=== PATIENT | male | born 1985 | race Hispanic/Latino ===

== ENCOUNTER 2017-05-05 16:36 | Inpatient (IN) | payer MEDICAID ==
[~2017-05-05] VITALS: Ht 162.6 cm; Wt 81.5 kg
[~2017-05-05 16:36] MED LIST: ASPI-1197 PO; GLIP5TAB11 PO; METF500T6 PO; SULF1TAB42 PO
[2017-05-05] MEDS ORDERED: METOCLOPRAMIDE 10 MG/2 ML VIAL ONE (16:59)
[2017-05-05] MEDS ORDERED: SODIUM CHLORIDE 0.9% 1000ML 1,000 ML IV ONE (16:59)
[2017-05-05] MEDS ORDERED: ACETAMINOPHEN 325 MG TAB ONE (16:59)
[2017-05-05] MEDS ORDERED: ASPIRIN 325 MG TABLET ONE (16:59)
[2017-05-05 17:04] LABS: EOSINOPHILS % (AUTO) 1.4 % (0.0-8.0); LYMPHOCYTES % (AUTO) 22.5 % (21.0-51.0); MEAN CORPUSCULAR HEMOGLOBIN 26.8 pg (27.0-33.0); MEAN CORPUSCULAR VOLUME 78.7 fL (79-99); MONOCYTES % (AUTO) 7.4 % (3.0-13.0); NEUTROPHILS % (AUTO) 67.7 % (40.0-77.0); PLATELET COUNT (AUTO) 395 K/uL (130-400); RED BLOOD CELL COUNT(AUTO) 4.44 MIL/uL (4.50-6.20); RED CELL DISTRIBUTION WIDTH 12.8 % (11.0-15.5); WHITE BLOOD COUNT (AUTO) 11.1 K/uL (4.8-10.8)
[2017-05-05 17:11] LABS: CREATININE 2.9 mg/dL (0.5-1.5)
[2017-05-05 17:12] LABS: POTASSIUM 2.4 mmol/L (3.5-5.1)
[2017-05-05] MEDS ORDERED: POTASSIUM CHLORIDE 20 MEQ ERTAB PO ONE ×2 (17:39→17:47)
[2017-05-05] MEDS ORDERED: POTASSIUM CHLORIDE 20MEQ/100ML 100 ML IV ONE (17:39)
[2017-05-05 17:43] LABS: APPEARANCE,URINE Clear (CLEAR); BILIRUBIN,URINE Negative (NEGATIVE); COLOR,URINE Yellow (YELLOW); GLUCOSE, URINE (UA) >=1000 mg/dL (NEGATIVE); KETONES,URINE Negative (NEGATIVE); LEUKOCYTE ESTERASE ,URINE Negative (NEGATIVE); NITRATE,URINE Negative (NEGATIVE); OCCULT BLOOD,URINE Moderate (NEGATIVE); PH,URINE 6.5 (5.0-8.0); PROTEIN,URINE >=1000 (NEGATIVE); UROBILINOGEN,URINE 0.2 mg/dL (0.2-1.0)
[2017-05-05 17:47] LABS: RBC,URINE None Seen /HPF (0-1); WBC,URINE 0-1 /HPF (0-1)
[2017-05-05 17:48] LABS: BACTERIA,URINE Rare /HPF (None Seen); HYALINE CASTS, URINE 0-1 /LPF (0-1 /LPF); MUCUS,URINE Rare LPF (None Seen); SQUAMOUS EPITHELIAL CELL,UR Rare /LPF (0-2)
[2017-05-05] MEDS ORDERED: GUAIFENESIN-DM 200/20 MG 10 ML PO PRN (18:00)
[2017-05-05] MEDS ORDERED: ONDANSETRON HCL 4 MG/2 ML VIAL IV PRN (18:00)
[2017-05-05] MEDS ORDERED: LACTULOSE 20 GM/30 ML UDCUP PO PRN (18:00)
[2017-05-05] MEDS ORDERED: ACETAMINOPHEN 325 MG TAB PO PRN ×2 (18:00)
[2017-05-05 18:15] LABS: AMPHET/METH SCREEN,URINE NEGATIVE (NEGATIVE); BARBITURATE SCREEN, URINE NEGATIVE (NEGATIVE); BENZODIAZEPINES SCREEN,URINE NEGATIVE (NEGATIVE); CANNABINOID SCREEN,URINE NEGATIVE (NEGATIVE); COCAINE SCREEN,URINE POSITIVE (NEGATIVE); OPIATE SCREEN,URINE NEGATIVE (NEGATIVE); PHENCYCLIDINE SCREEN,URINE NEGATIVE (NEGATIVE)
[2017-05-05 18:37] LABS: POTASSIUM 2.2 mmol/L (3.5-5.1)
[2017-05-05 19:00] VITALS: BP 187/98
[2017-05-05] MEDS: FAMOTIDINE/PF 20 MG/2 ML VIAL IV SCH (20:23)
[2017-05-05] MEDS: SODIUM CHLORIDE 0.9% 1000ML 1,000 ML IV SCH (20:23)
[2017-05-05] MEDS: HYDRALAZINE HCL 20 MG/ML VIAL IV PRN (22:16)
[2017-05-05] MEDS: NITROGLYCERIN 1GM/1 INCH PACKET TD SCH (22:30)
[2017-05-05] MEDS ORDERED: NITROGLYCERIN 1GM/1 INCH PACKET TD ONE (22:49)
[2017-05-05 23:07] LABS: CREATINE KINASE MB 4.7 ng/mL (0.5-3.6); CREATINE KINASE, TOTAL 260 U/L (21-232); MYOGLOBIN 328 ng/mL (10-92); THYROID STIMULATING HORMONE 3.54 uIU/mL (0.36-3.74); TROPONIN I < 0.04 ng/mL (0.00-0.06)
[2017-05-05] MEDS ORDERED: METRONIDAZOLE 500MG/100ML BAG 100 ML ONE (23:11)
[2017-05-05 23:12] LABS: POTASSIUM 2.4 mmol/L (3.5-5.1)
[2017-05-05] MEDS: METRONIDAZOLE 250MG/50ML 50 ML IV SCH (23:19)
[2017-05-05 23:42] VITALS: BP 135/76
[2017-05-06] MEDS ORDERED: POTASSIUM CHLORIDE 20 MEQ ERTAB PO SCH (00:45)
[2017-05-06] MEDS ORDERED: POTASSIUM CHLORIDE 20 MEQ ERTAB PO ONE (00:47)
[2017-05-06 04:00] VITALS: BP 104/55
[2017-05-06 05:28] LABS: CREATININE 2.8 mg/dL (0.5-1.5)
[2017-05-06 05:30] LABS: POTASSIUM 2.7 mmol/L (3.5-5.1)
[2017-05-06] MEDS: SODIUM CHLORIDE 0.9% 1000ML 1,000 ML IV SCH (06:05)
[2017-05-06] MEDS: INSULIN HUMULIN R 100 UNIT/ML 3ML SQ SCH ×4 (06:06→21:15)
[2017-05-06] MEDS ORDERED: METRONIDAZOLE 500MG/100ML BAG 100 ML ONE (06:21)
[2017-05-06] MEDS: NITROGLYCERIN 1GM/1 INCH PACKET TD SCH ×3 (06:36→21:23)
[2017-05-06] MEDS ORDERED: INSULIN HUMULIN R 100 UNIT/ML 3ML SQ SCH (07:30)
[2017-05-06 08:00] VITALS: BP 170/87
[2017-05-06] MEDS ORDERED: INSU100V12 SQ (09:59)
[2017-05-06] MEDS ORDERED: METF10004 PO (09:59)
[2017-05-06] MEDS ORDERED: GLIP5TAB11 PO (09:59)
[2017-05-06] MEDS ORDERED: LISI10TA7 PO (09:59)
[2017-05-06] MEDS ORDERED: HYDR25TA PO (09:59)
[2017-05-06] MEDS: FAMOTIDINE/PF 20 MG/2 ML VIAL IV SCH ×2 (10:00→21:14)
[2017-05-06 11:19] VITALS: BP 164/102
[2017-05-06] MEDS: METRONIDAZOLE 250MG/50ML 50 ML IV SCH ×2 (14:32→21:23)
[2017-05-06 15:22] LABS: CREATININE 2.8 mg/dL (0.5-1.5)
[2017-05-06 16:00] VITALS: BP 179/89
[2017-05-06] MEDS: HYDRALAZINE HCL 20 MG/ML VIAL IV PRN (17:07)
[2017-05-06 18:00] VITALS: BP 190/93
[2017-05-06] MEDS ORDERED: METOPROLOL TARTRATE 1 MG/ML 5ML VIAL IV PRN (18:45)
[2017-05-06] MEDS ORDERED: METOPROLOL TARTRATE 1 MG/ML 5ML VIAL IV ONE (18:49)
[2017-05-06 19:27] VITALS: BP 145/88
[2017-05-07] VITALS (7 sets, daily range): BP systolic 117–196; BP diastolic 63–104
[2017-05-07] MEDS: METRONIDAZOLE 250MG/50ML 50 ML IV SCH ×2 (05:14→14:57)
[2017-05-07] MEDS: NITROGLYCERIN 1GM/1 INCH PACKET TD SCH (05:15)
[2017-05-07 05:33] LABS: CREATININE 2.6 mg/dL (0.5-1.5)
[2017-05-07 05:44] LABS: POTASSIUM 2.8 mmol/L (3.5-5.1)
[2017-05-07] MEDS: INSULIN HUMULIN R 100 UNIT/ML 3ML SQ SCH ×3 (06:20→16:18)
[2017-05-07] MEDS ORDERED: INSULIN GLARGINE 100 UNITS/ML 10 ML VIAL SQ SCH (08:00)
[2017-05-07] MEDS: FAMOTIDINE/PF 20 MG/2 ML VIAL IV SCH (08:39)
[2017-05-07] MEDS ORDERED: GLIPIZIDE 5 MG TABLET PO SCH (09:00)
[2017-05-07] MEDS ORDERED: LISINOPRIL 10 MG TABLET PO SCH (09:00)
[2017-05-07] MEDS ORDERED: SODIUM CHLORIDE 0.9% 1000ML 1,000 ML IV SCH (09:56)
[2017-05-07] MEDS ORDERED: POTASSIUM CHLORIDE 10% ELIXIR 20 MEQ/15 ML UDCUP PO PRN (10:00)
[2017-05-07] MEDS ORDERED: POTASSIUM CHLORIDE 20 MEQ ERTAB PO PRN (10:00)
[2017-05-07] MEDS ORDERED: MAGNESIUM 2GM PREMIX 50ML 50 ML IV SCH (10:00)
[2017-05-07] MEDS: LIDOCAINE HCL-MPF 1% 2ML VIAL IVP PRN ×2 (13:11→16:08)
[2017-05-07] MEDS: POTASSIUM CHLORIDE 20MEQ/100ML 100 ML IV PRN ×2 (13:11→16:08)
[2017-05-07] MEDS: HYDRALAZINE HCL 20 MG/ML VIAL IV PRN (16:18)
[2017-05-07 18:24] LABS: CREATININE 2.7 mg/dL (0.5-1.5); POTASSIUM 3.6 mmol/L (3.5-5.1)
[2017-09-07] MEDS ORDERED: AMLO5TAB4 PO (09:16)
[2017-09-07] MEDS ORDERED: CIPR250T6 PO (09:16)
== END 2017-05-07 20:30 | disposition home or self-care (01) | DRG 249 ==
LOC: EDH 16:36 → EDHIP 16:37 → OBSVTOIN 16:37 → 4CH 19:05
PROVIDERS: ADMIT Family Medicine; ATTEND Family Medicine
DX: K52.9 Noninfective gastroenteritis and colitis, unspecified (principal); E11.22 Type 2 diabetes mellitus with diabetic chronic kidney disease; N17.9 Acute kidney failure, unspecified; E11.42 Type 2 diabetes mellitus with diabetic polyneuropathy; E11.319 Type 2 diabetes mellitus with unspecified diabetic retinopathy without macular edema; N18.3 Chronic kidney disease, stage 3 (moderate); E87.6 Hypokalemia; E11.40 Type 2 diabetes mellitus with diabetic neuropathy, unspecified; I12.9 Hypertensive chronic kidney disease with stage 1 through stage 4 chronic kidney disease, or unspecified chronic kidney disease; F14.90 Cocaine use, unspecified, uncomplicated; H54.7 Unspecified visual loss; Z79.4 Long term (current) use of insulin; Z83.3 Family history of diabetes mellitus
CPT/HCPCS: 36415; 71045; 80048; 80305; 81001; 82550; 82553; 82948; 83036; 83690; 83735; 83874; 84132; 84443; 84484; 85025; 85378; 87046; 87205; 87324; 93005; J0360; J1815; J2765; J3475; J3480; J3490; J7030

== ENCOUNTER 2017-09-18 19:11 | Inpatient (IN) | payer SELFPAY ==
[~2017-09-18] VITALS: Ht 162.6 cm; Wt 88.7 kg
[~2017-09-18 19:11] MED LIST changes: +AMLO5TAB4 PO; -ASPI-1197 PO; +CIPR250T6 PO; -GLIP5TAB11 PO; -METF500T6 PO; -SULF1TAB42 PO
[2017-09-18 19:40] LABS: BASOPHILS % (AUTO) 1.2 % (0.0-5.0); HEMATOCRIT 22.8 % (42-54); LYMPHOCYTES % (AUTO) 10.6 % (21.0-51.0); MEAN CORPUSCULAR HEMOGLOBIN 26.2 pg (27.0-33.0); MEAN CORPUSCULAR HGB CONC 33.2 g/dL (32.0-36.0); MEAN CORPUSCULAR VOLUME 78.9 fL (79-99); MONOCYTES % (AUTO) 18.9 % (3.0-13.0); NEUTROPHILS % (AUTO) 67.3 % (40.0-77.0); PLATELET COUNT (AUTO) 282 K/uL (130-400); RED BLOOD CELL COUNT(AUTO) 2.89 MIL/uL (4.50-6.20); RED CELL DISTRIBUTION WIDTH 14.7 % (11.0-15.5)
[2017-09-18 19:52] LABS: CREATININE 5.3 mg/dL (0.5-1.5); POTASSIUM 3.2 mmol/L (3.5-5.1)
[2017-09-18 19:59] LABS: B-TYPE NATRIURETIC PEPTIDE 290 pg/mL (0-100)
[2017-09-18 20:06] LABS: ALBUMIN 1.9 g/dL (3.5-5.0); BILIRUBIN,DIRECT 0.1 mg/dL (0.0-0.3); BILIRUBIN,TOTAL 0.5 mg/dL (0.2-1.0); TOTAL PROTEIN, SERUM 6.7 g/dL (6.0-8.3)
[2017-09-18 20:58] LABS: APPEARANCE,URINE CLEAR (CLEAR); BILIRUBIN,URINE NEGATIVE (NEGATIVE); COLOR,URINE YELLOW (YELLOW); GLUCOSE, URINE (UA) 250 mg/dL (NEGATIVE); KETONES,URINE NEGATIVE (NEGATIVE); LEUKOCYTE ESTERASE ,URINE NEGATIVE (NEGATIVE); NITRATE,URINE NEGATIVE (NEGATIVE); OCCULT BLOOD,URINE LARGE (NEGATIVE); PROTEIN,URINE >=300 (NEGATIVE); UROBILINOGEN,URINE 0.2 mg/dL (0.2-1.0)
[2017-09-18 21:05] LABS: AMPHET/METH SCREEN,URINE NEGATIVE (NEGATIVE); BARBITURATE SCREEN, URINE NEGATIVE (NEGATIVE); BENZODIAZEPINES SCREEN,URINE NEGATIVE (NEGATIVE); CANNABINOID SCREEN,URINE NEGATIVE (NEGATIVE); COCAINE SCREEN,URINE NEGATIVE (NEGATIVE); OPIATE SCREEN,URINE NEGATIVE (NEGATIVE); PHENCYCLIDINE SCREEN,URINE NEGATIVE (NEGATIVE)
[2017-09-18 21:20] LABS: BACTERIA,URINE Few /HPF (None Seen); SQUAMOUS EPITHELIAL CELL,UR Few /HPF (0-2); WBC,URINE 0-1 /HPF (0-1)
[2017-09-18] MEDS ORDERED: FUROSEMIDE 10 MG/ML 4ML VIAL ONE (22:03)
[2017-09-18] MEDS ORDERED: ALBUMIN (HUMAN) 25% 100 ML IV ONE (22:35)
[2017-09-19] MEDS ORDERED: GLUCAGON 1MG KIT 1 MG ML IM PRN (01:15)
[2017-09-19] MEDS ORDERED: DEXTROSE 50%-WATER 50 ML DISP.SYRIN IV PRN (01:15)
[2017-09-19] MEDS ORDERED: ACETAMINOPHEN 325 MG TAB PO PRN (01:30)
[2017-09-19] MEDS ORDERED: ONDANSETRON HCL MDV 20ML 2 MG/ML VIAL IVP PRN (01:30)
[2017-09-19] MEDS: IPRATROPIUM/ALBUTEROL SULFATE 3 ML SOLUTION IH SCH ×6 (02:40→21:48)
[2017-09-19] MEDS: HEPARIN SODIUM 5000UNIT/ML 1ML VIAL SQ SCH ×3 (06:00→22:40)
[2017-09-19] MEDS ORDERED: IPRATROPIUM/ALBUTEROL SULFATE 3 ML SOLUTION IH ONE ×3 (06:58→13:58)
[2017-09-19] MEDS: INSULIN HUMULIN R 100 UNIT/ML 3ML SQ SCH ×4 (07:30→21:00)
[2017-09-19 08:29] LABS: BASOPHILS % (AUTO) 0.8 % (0.0-5.0); EOSINOPHILS % (AUTO) 0.7 % (0.0-8.0); HEMATOCRIT 22.5 % (42-54); LYMPHOCYTES % (AUTO) 8.4 % (21.0-51.0); MEAN CORPUSCULAR HEMOGLOBIN 26.1 pg (27.0-33.0); MEAN CORPUSCULAR HGB CONC 32.9 g/dL (32.0-36.0); MEAN CORPUSCULAR VOLUME 79.1 fL (79-99); MONOCYTES % (AUTO) 15.2 % (3.0-13.0); NEUTROPHILS % (AUTO) 74.9 % (40.0-77.0); PLATELET COUNT (AUTO) 271 K/uL (130-400); RED BLOOD CELL COUNT(AUTO) 2.84 MIL/uL (4.50-6.20); RED CELL DISTRIBUTION WIDTH 14.4 % (11.0-15.5); WHITE BLOOD COUNT (AUTO) 7.6 K/uL (4.8-10.8)
[2017-09-19 08:45] LABS: CREATININE 5.3 mg/dL (0.5-1.5); POTASSIUM 3.2 mmol/L (3.5-5.1)
[2017-09-19] MEDS ORDERED: FAMOTIDINE 20MG TAB 20 MG TAB ONE (08:59)
[2017-09-19] MEDS ORDERED: FUROSEMIDE 10 MG/ML 2ML VIAL ONE (08:59)
[2017-09-19] MEDS ORDERED: HEPARIN SODIUM 5000UNIT/ML 1ML VIAL ONE (08:59)
[2017-09-19] MEDS: FAMOTIDINE 20MG TAB 20 MG TAB PO SCH ×2 (09:00→22:36)
[2017-09-19] MEDS: FUROSEMIDE 10 MG/ML 2ML VIAL IVP SCH ×2 (09:00→22:38)
[2017-09-19 16:40] VITALS: BP 160/84
[2017-09-19 19:53] VITALS: BP 136/64
[2017-09-19 23:28] VITALS: BP 130/73
[2017-09-20] VITALS (9 sets, daily range): BP systolic 152–177; BP diastolic 51–102
[2017-09-20] MEDS: IPRATROPIUM/ALBUTEROL SULFATE 3 ML SOLUTION IH SCH ×6 (01:36→21:24)
[2017-09-20 05:47] LABS: HEMATOCRIT 21.7 % (42-54); MEAN CORPUSCULAR HEMOGLOBIN 26.4 pg (27.0-33.0); MEAN CORPUSCULAR HGB CONC 33.9 g/dL (32.0-36.0); PLATELET COUNT (AUTO) 249 K/uL (130-400); RED BLOOD CELL COUNT(AUTO) 2.78 MIL/uL (4.50-6.20); RED CELL DISTRIBUTION WIDTH 14.6 % (11.0-15.5); WHITE BLOOD COUNT (AUTO) 8.4 K/uL (4.8-10.8)
[2017-09-20 06:01] LABS: CREATININE 5.6 mg/dL (0.5-1.5); PHOSPHORUS 7.9 mg/dL (2.5-4.9); POTASSIUM 3.4 mmol/L (3.5-5.1)
[2017-09-20 06:05] LABS: INR 0.98 (0.85-1.15); PARTIAL THROMBOPLASTIN TIME 34.1 SEC (26.3-35.5); PROTHROMBIN TIME 10.3 SEC (9.6-11.6)
[2017-09-20 06:06] LABS: EOSINOPHILS % (MANUAL) 1 % (1-6); LYMPHOCYTES % (MANUAL) 7 % (22-44); MAN.DIFF COMMENT-IMPRESSION MANUAL DIFFERENTIAL; MONOCYTES % (MANUAL) 11 % (2-9); PLATELET MORPHOLOGY COMMENT ADEQUATE; SEGMENTED NEUTROPHILS % 81 % (40-70)
[2017-09-20] MEDS: HEPARIN SODIUM 5000UNIT/ML 1ML VIAL SQ SCH ×2 (06:14→22:00)
[2017-09-20] MEDS: INSULIN HUMULIN R 100 UNIT/ML 3ML SQ SCH ×3 (06:14→21:00)
[2017-09-20] MEDS ORDERED: LISINOPRIL 20 MG TABLET PO SCH (09:00)
[2017-09-20] MEDS ORDERED: LIDOCAINE HCL 2% 20ML ONE (11:39)
[2017-09-20] MEDS ORDERED: HEPARIN SODIUM 1000UNIT/ML 10ML VIAL ONE (11:41)
[2017-09-20 17:57] LABS: HEMATOCRIT 21.5 % (42-54)
[2017-09-20] MEDS ORDERED: ALBUMIN (HUMAN) 25% 100 ML IV PRN (18:15)
[2017-09-20] MEDS ORDERED: SODIUM CHLORIDE 0.9% 1000ML 1,000 ML IV PRN (18:15)
[2017-09-20] MEDS ORDERED: 0.9% SODIUM CHLORIDE 250 ML IV BAG IV PRN (18:15)
[2017-09-20] MEDS ORDERED: HEPARIN SODIUM 5000UNIT/ML 1ML VIAL IJ PRN (18:15)
[2017-09-20 18:27] LABS: ALBUMIN 2.1 g/dL (3.5-5.0)
[2017-09-20 18:32] LABS: % IRON SATURATION 5.1 % (30-44)
[2017-09-20 18:38] LABS: HEMOGLOBIN A1C 9.7 % (4.0-6.0)
[2017-09-20 19:35] LABS: CREATINE KINASE MB 9.9 ng/mL (0.5-3.6)
[2017-09-20] MEDS ORDERED: EPOETIN ALFA 20,000 UNIT/ML VIAL SQ ONE (21:00)
[2017-09-20] MEDS: FAMOTIDINE 20MG TAB 20 MG TAB PO SCH (21:53)
[2017-09-21 00:34] VITALS: BP 151/81
[2017-09-21] MEDS: IPRATROPIUM/ALBUTEROL SULFATE 3 ML SOLUTION IH SCH ×5 (01:34→23:24)
[2017-09-21 04:39] VITALS: BP 149/92
[2017-09-21] MEDS: HEPARIN SODIUM 5000UNIT/ML 1ML VIAL SQ SCH ×3 (06:00→22:35)
[2017-09-21] MEDS: INSULIN HUMULIN R 100 UNIT/ML 3ML SQ SCH ×4 (06:38→21:00)
[2017-09-21 08:00] VITALS: BP 151/82
[2017-09-21] MEDS ORDERED: COMPOUND IV MISC 1 EACH IVSOLN MISC PRN (09:15)
[2017-09-21] MEDS: FAMOTIDINE 20MG TAB 20 MG TAB PO SCH ×2 (09:45→21:14)
[2017-09-21] MEDS: IRON SUCROSE COMPLEX 100 MG in SODIUM CHLORIDE 0.9% 50 ML IV SCH (09:45)
[2017-09-21 11:00] VITALS: BP 144/71
[2017-09-21 16:00] VITALS: BP 155/99
[2017-09-21 20:57] VITALS: BP 167/88
[2017-09-22] VITALS (24 sets, daily range): BP systolic 130–165; BP diastolic 72–101
[2017-09-22 05:31] LABS: CREATININE 4.3 mg/dL (0.5-1.5); POTASSIUM 3.5 mmol/L (3.5-5.1)
[2017-09-22 05:40] LABS: RED CELL DISTRIBUTION WIDTH 14.8 % (11.0-15.5)
[2017-09-22] MEDS: HEPARIN SODIUM 5000UNIT/ML 1ML VIAL SQ SCH ×3 (05:42→20:40)
[2017-09-22 05:47] LABS: MEAN CORPUSCULAR HEMOGLOBIN 26.6 pg (27.0-33.0); MEAN CORPUSCULAR HGB CONC 34.2 g/dL (32.0-36.0); MEAN CORPUSCULAR VOLUME 77.5 fL (79-99); NUCLEATED RED BLOOD CELLS 0.1 % (0.0-0.19); PLATELET COUNT (AUTO) 242 K/uL (130-400); RED BLOOD CELL COUNT(AUTO) 2.52 MIL/uL (4.50-6.20); WHITE BLOOD COUNT (AUTO) 7.6 K/uL (4.8-10.8)
[2017-09-22 05:53] LABS: HEMATOCRIT 19.6 % (42-54)
[2017-09-22] MEDS: IPRATROPIUM/ALBUTEROL SULFATE 3 ML SOLUTION IH SCH ×3 (06:34→18:54)
[2017-09-22] MEDS: INSULIN HUMULIN R 100 UNIT/ML 3ML SQ SCH ×4 (07:30→21:00)
[2017-09-22 08:23] LABS: HEPATITIS Bs ANTIGEN SCREEN P Negative (Negative)
[2017-09-22] MEDS: LISINOPRIL 40 MG TABLET PO SCH (08:35)
[2017-09-22] MEDS: FAMOTIDINE 20MG TAB 20 MG TAB PO SCH ×2 (08:35→20:32)
[2017-09-22] MEDS ORDERED: IRON SUCROSE COMPLEX 100 MG in SODIUM CHLORIDE 0.9% 50 ML IV SCH (09:00)
[2017-09-22] MEDS: METOPROLOL TARTRATE 50 MG TAB PO SCH ×2 (09:57→20:32)
[2017-09-22] MEDS ORDERED: PAPAVERINE HCL 30 MG/ML 2ML VIAL ONE (10:28)
[2017-09-22] MEDS ORDERED: OCTYL 2-CYANOACRYLATE 1 EACH TP ONE (10:29)
[2017-09-22] MEDS ORDERED: NEOMY SULF/POLYMYXIN B SULFATE 1 ML AMPUL IR ONE (10:30)
[2017-09-22] MEDS ORDERED: LIDOCAINE HCL-MPF 0.5% 50ML VIAL IJ ONE (10:31)
[2017-09-22] MEDS ORDERED: FENTANYL CITRATE PF 50 MCG/1 ML 2ML VIAL ONE (11:19)
[2017-09-22] MEDS ORDERED: MIDAZOLAM HCL 1 MG/ML 2ML VIAL ONE (11:20)
[2017-09-22] MEDS: IRON SUCROSE COMPLEX 100 MG in SODIUM CHLORIDE 0.9% 50 ML IV SCH (16:25)
[2017-09-22] MEDS ORDERED: LOPERAMIDE HCL 2 MG CAP PO PRN (20:15)
[2017-09-23] MEDS ORDERED: TRAMADOL HCL 50 MG TABLET PO PRN (00:15)
[2017-09-23] MEDS: IPRATROPIUM/ALBUTEROL SULFATE 3 ML SOLUTION IH SCH ×3 (00:38→11:04)
[2017-09-23 03:54] VITALS: BP 168/92
[2017-09-23 05:23] LABS: MEAN CORPUSCULAR HEMOGLOBIN 26.8 pg (27.0-33.0); MEAN CORPUSCULAR HGB CONC 34.1 g/dL (32.0-36.0); MEAN CORPUSCULAR VOLUME 78.6 fL (79-99); PLATELET COUNT (AUTO) 253 K/uL (130-400); RED BLOOD CELL COUNT(AUTO) 2.93 MIL/uL (4.50-6.20); RED CELL DISTRIBUTION WIDTH 15.4 % (11.0-15.5)
[2017-09-23 05:32] LABS: ALBUMIN 2.1 g/dL (3.5-5.0); BILIRUBIN,TOTAL 0.4 mg/dL (0.2-1.0); CREATININE 3.4 mg/dL (0.5-1.5); POTASSIUM 3.3 mmol/L (3.5-5.1); TOTAL PROTEIN, SERUM 7.2 g/dL (6.0-8.3)
[2017-09-23] MEDS: HEPARIN SODIUM 5000UNIT/ML 1ML VIAL SQ SCH (07:03)
[2017-09-23] MEDS: INSULIN HUMULIN R 100 UNIT/ML 3ML SQ SCH ×2 (07:04→11:28)
[2017-09-23 08:01] VITALS: BP 145/68
[2017-09-23] MEDS: METOPROLOL TARTRATE 50 MG TAB PO SCH (08:54)
[2017-09-23] MEDS: LISINOPRIL 40 MG TABLET PO SCH (08:54)
[2017-09-23] MEDS: FAMOTIDINE 20MG TAB 20 MG TAB PO SCH (08:54)
[2017-09-23] MEDS: IRON SUCROSE COMPLEX 100 MG in SODIUM CHLORIDE 0.9% 50 ML IV SCH (08:54)
[2017-09-23 11:43] VITALS: BP 144/70
[2017-09-23] MEDS ORDERED: FAMO20TA8 PO (12:03)
[2017-09-23] MEDS ORDERED: METO50 PO (12:03)
[2017-09-23] MEDS ORDERED: LISI40TA4 PO (12:03)
== END 2017-09-23 15:25 | disposition home or self-care (01) | DRG 673 ==
LOC: EDH 19:11 → OBSVTOIN 19:12 → EDHIP 19:12 → 3DH 09-19 14:42
PROVIDERS: ADMIT Internal Medicine Nephrology; ATTEND Internal Medicine Nephrology
PROC: 0JH63XZ Insertion of Tunneled Vascular Access Device into Chest Subcutaneous Tissue and Fascia, Percutaneous Approach (ICD-10-PCS; principal; 2017-09-20)
PROC: 02H633Z Insertion of Infusion Device into Right Atrium, Percutaneous Approach (ICD-10-PCS; 2017-09-20)
PROC: B2141ZZ Fluoroscopy of Right Heart using Low Osmolar Contrast (ICD-10-PCS; 2017-09-20)
PROC: B244ZZZ Ultrasonography of Right Heart (ICD-10-PCS; 2017-09-20)
PROC: 5A1D70Z Performance of Urinary Filtration, Intermittent, Less than 6 Hours Per Day (ICD-10-PCS; 2017-09-20)
PROC: 5A1D70Z Performance of Urinary Filtration, Intermittent, Less than 6 Hours Per Day (ICD-10-PCS; 2017-09-21)
PROC: 03180ZD Bypass Left Brachial Artery to Upper Arm Vein, Open Approach (ICD-10-PCS; 2017-09-22)
PROC: 5A1D70Z Performance of Urinary Filtration, Intermittent, Less than 6 Hours Per Day (ICD-10-PCS; 2017-09-23)
DX: I12.0 Hypertensive chronic kidney disease with stage 5 chronic kidney disease or end stage renal disease (principal); N18.6 End stage renal disease; N17.9 Acute kidney failure, unspecified; E11.22 Type 2 diabetes mellitus with diabetic chronic kidney disease; E87.6 Hypokalemia; E11.319 Type 2 diabetes mellitus with unspecified diabetic retinopathy without macular edema; F14.10 Cocaine abuse, uncomplicated; H54.8 Legal blindness, as defined in USA; E11.649 Type 2 diabetes mellitus with hypoglycemia without coma; E87.70 Fluid overload, unspecified; R79.1 Abnormal coagulation profile; E78.5 Hyperlipidemia, unspecified; Z99.2 Dependence on renal dialysis; Z83.3 Family history of diabetes mellitus
CPT/HCPCS: 36415; 36430; 36558; 71045; 77001; 78580; 80048; 80053; 80061; 80076; 80305; 81001; 82040; 82550; 82553; 82728; 82948; 83036; 83540; 83550; 83880; 84100; 84484; 84520; 85014; 85018; 85025; 85027; 85378; 85610; 85730; 86701; 86704; 86706; 86850; 86900; 86901; 86922; 87340; 87390; 87520; 90935; 93005; 93970; 93971; 94640; 94664; A9540; C1750; J0885; J1644; J1756; J1815; J1940; J2250; J2440; J3010; J3490; J7030; P9016; P9046

== ENCOUNTER 2017-12-27 10:01 | Day surgery (SDC) | payer MEDICARE ==
[~2017-12-27 10:01] MED LIST changes: -AMLO5TAB4 PO; -CIPR250T6 PO; +FAMO20TA8 PO; +LISI40TA4 PO; +METO50 PO
[2017-12-27 10:32] LABS: EOSINOPHILS % (AUTO) 2.1 % (0.0-8.0); HEMATOCRIT 40.9 % (42-54); LYMPHOCYTES % (AUTO) 16.3 % (21.0-51.0); MEAN CORPUSCULAR HEMOGLOBIN 27.2 pg (27.0-33.0); MEAN CORPUSCULAR VOLUME 82.3 fL (79-99); MONOCYTES % (AUTO) 9.2 % (3.0-13.0); NEUTROPHILS % (AUTO) 71.4 % (40.0-77.0); PLATELET COUNT (AUTO) 367 K/uL (130-400); RED BLOOD CELL COUNT(AUTO) 4.97 MIL/uL (4.50-6.20); RED CELL DISTRIBUTION WIDTH 16.4 % (11.0-15.5); WHITE BLOOD COUNT (AUTO) 11.9 K/uL (4.8-10.8)
[2017-12-27] MEDS ORDERED: SODIUM CHLORIDE 0.9% 1000ML 1,000 ML IV ONE (10:33)
[2017-12-27 10:36] LABS: CREATININE 5.3 mg/dL (0.5-1.5); POTASSIUM 4.2 mmol/L (3.5-5.1)
[2017-12-27] MEDS ORDERED: GLIP10TA9 PO (10:42)
[2017-12-27 10:47] LABS: INR 0.99 (0.85-1.15); PARTIAL THROMBOPLASTIN TIME 33.4 SEC (26.3-35.5); PROTHROMBIN TIME 10.4 SEC (9.6-11.6)
[2017-12-27] MEDS ORDERED: SODIUM BICARB 50MEQ 50ML VIAL ONE (11:54)
[2017-12-27] MEDS ORDERED: LIDOCAINE HCL MPF 1% 5ML VIAL ONE (11:54)
[2017-12-27 12:10] VITALS: BP 191/102
[2017-12-27 12:20] VITALS: BP 194/102
[2017-12-27 12:40] VITALS: BP 185/105
[2017-12-27] MEDS ORDERED: CLONIDINE HCL 0.2 MG TABLET PO SCH (13:00)
[2017-12-27 13:25] VITALS: BP 157/75
== END 2017-12-27 14:00 | disposition home or self-care (01) ==
LOC: CLH 10:01 → DAH 10:01 → CLH 14:00
PROVIDERS: ATTEND Internal Medicine Nephrology
DX: Z49.01 Encounter for fitting and adjustment of extracorporeal dialysis catheter (principal); I12.0 Hypertensive chronic kidney disease with stage 5 chronic kidney disease or end stage renal disease; E11.22 Type 2 diabetes mellitus with diabetic chronic kidney disease; N18.5 Chronic kidney disease, stage 5; E78.5 Hyperlipidemia, unspecified; F14.10 Cocaine abuse, uncomplicated; Z79.84 Long term (current) use of oral hypoglycemic drugs; Z91.018 Allergy to other foods; Z82.49 Family history of ischemic heart disease and other diseases of the circulatory system; Z83.3 Family history of diabetes mellitus
CPT/HCPCS: 36415; 36589; 71045; 80048; 82948; 85025; 85610; 85730; A4606; J3490 ×2; J7030; J1644

== ENCOUNTER 2018-04-30 21:52 | Emergency (ER) | payer MEDICARE ==
[~2018-04-30 21:52] MED LIST changes: -FAMO20TA8 PO; +GLIP10TA9 PO; -METO50 PO
[2018-04-30 22:30] LABS: BASOPHILS % (AUTO) 1.3 % (0.0-5.0); EOSINOPHILS % (AUTO) 1.9 % (0.0-8.0); HEMATOCRIT 37.4 % (42-54); LYMPHOCYTES % (AUTO) 13.2 % (21.0-51.0); MEAN CORPUSCULAR HEMOGLOBIN 28.9 pg (27.0-33.0); MEAN CORPUSCULAR HGB CONC 33.2 g/dL (32.0-36.0); MEAN CORPUSCULAR VOLUME 86.9 fL (79-99); MONOCYTES % (AUTO) 10.4 % (3.0-13.0); NEUTROPHILS % (AUTO) 73.2 % (40.0-77.0); PLATELET COUNT (AUTO) 262 K/uL (130-400); RED CELL DISTRIBUTION WIDTH 16.5 % (11.0-15.5); WHITE BLOOD COUNT (AUTO) 7.6 K/uL (4.8-10.8)
[2018-04-30 22:40] LABS: CREATININE 5.2 mg/dL (0.5-1.5); POTASSIUM 3.8 mmol/L (3.5-5.1)
[2018-04-30 22:41] LABS: INR 1.02 (0.85-1.15); PARTIAL THROMBOPLASTIN TIME 33.7 SEC (26.3-35.5); PROTHROMBIN TIME 10.7 SEC (9.6-11.6)
[2018-04-30 22:44] LABS: BILIRUBIN,TOTAL 0.9 mg/dL (0.2-1.0); TOTAL PROTEIN, SERUM 8.2 g/dL (6.0-8.3)
[2018-04-30] MEDS ORDERED: SODIUM CHLORIDE 0.9% 100 ML IV ONE (23:14)
[2018-04-30] MEDS ORDERED: ERYTHROMYCIN BASE 0.5% OPHTH OINT 1 GM TUBE ONE (23:26)
[2018-04-30] MEDS ORDERED: LISINOPRIL 5 MG TABLET ONE (23:29)
[2018-04-30] MEDS ORDERED: VANCOMYCIN 1GM+NS 250ML 250 ML IV ONE (23:30)
[2018-04-30] MEDS ORDERED: TETRACAINE HCL 0.5% 4 ML OPHTH SOLN ONE (23:34)
[2018-04-30] MEDS ORDERED: FLUORESCEIN SODIUM 1 STRIP STRIP ONE (23:35)
[2018-05-01] MEDS ORDERED: ACETAMINOPHEN EXTRA STRENGTH 500 MG TABLET ONE (04:23)
== END 2018-05-01 04:32 | disposition short-term general hospital (02) ==
LOC: EDH 21:52
DX: H44.811 Hemophthalmos, right eye (principal); H49.01 Third [oculomotor] nerve palsy, right eye; I12.0 Hypertensive chronic kidney disease with stage 5 chronic kidney disease or end stage renal disease; E11.22 Type 2 diabetes mellitus with diabetic chronic kidney disease; N18.6 End stage renal disease; Z99.2 Dependence on renal dialysis
CPT/HCPCS: 36415; 70450; 70480; 80053; 85025; 85610; 85730; 96365; 96366; 96375; 99285; J3370

== ENCOUNTER 2018-07-07 18:56 | Emergency (ER) | payer MEDICARE ==
[2018-07-07] MEDS ORDERED: SULFAMETHOX-TMP DS 800/160 TAB ONE (19:47)
[2018-07-07] MEDS ORDERED: IBUPROFEN 600 MG TABLET ONE (19:48)
== END 2018-07-07 20:23 | disposition home or self-care (01) ==
LOC: EDH 18:56
DX: L02.414 Cutaneous abscess of left upper limb (principal); E11.22 Type 2 diabetes mellitus with diabetic chronic kidney disease; I12.0 Hypertensive chronic kidney disease with stage 5 chronic kidney disease or end stage renal disease; N18.6 End stage renal disease; H54.7 Unspecified visual loss; Z99.2 Dependence on renal dialysis; Z79.4 Long term (current) use of insulin; Z87.891 Personal history of nicotine dependence

== ENCOUNTER 2018-09-18 13:04 | Inpatient (IN) | payer MEDICARE | END 2018-09-22 14:55 | disposition home or self-care (01) | LOC: EDH 13:04 → EDHIP 17:16 → 3CH 18:05 | DX: L03.211 Cellulitis of face (principal); N18.6 End stage renal disease; I12.0 Hypertensive chronic kidney disease with stage 5 chronic kidney disease or end stage renal disease; E11.21 Type 2 diabetes mellitus with diabetic nephropathy; E11.22 Type 2 diabetes mellitus with diabetic chronic kidney disease; D89.9 Disorder involving the immune mechanism, unspecified; D64.9 Anemia, unspecified; Z99.2 Dependence on renal dialysis; Z91.15 Patient's noncompliance with renal dialysis ==

== ENCOUNTER 2018-12-12 14:11 | Emergency (ER) | payer MEDICARE ==
[~2018-12-12 14:11] MED LIST changes: +AMLO5TAB4 PO; +AMOX-426 PO; +SEVE800T27 PO
== END 2018-12-12 15:15 | disposition home or self-care (01) ==
LOC: EDH 14:11
DX: L03.011 Cellulitis of right finger (principal); I12.0 Hypertensive chronic kidney disease with stage 5 chronic kidney disease or end stage renal disease; E11.22 Type 2 diabetes mellitus with diabetic chronic kidney disease; N18.6 End stage renal disease; Z99.2 Dependence on renal dialysis
CPT/HCPCS: 73130

== ENCOUNTER 2019-11-07 13:55 | Emergency (ER) | payer MEDICARE ==
[2019-11-07 14:38] LABS: BASOPHILS % (AUTO) 0.5 % (0.0-5.0); EOSINOPHILS % (AUTO) 4.3 % (0.0-8.0); HEMATOCRIT 32.5 % (42-54); LYMPHOCYTES % (AUTO) 11.1 % (21.0-51.0); MEAN CORPUSCULAR HEMOGLOBIN 31.2 pg (27.0-33.0); MEAN CORPUSCULAR HGB CONC 33.5 g/dL (32.0-36.0); MEAN CORPUSCULAR VOLUME 93.1 fL (79-99); MONOCYTES % (AUTO) 11.5 % (3.0-13.0); NEUTROPHILS % (AUTO) 72.4 % (40.0-77.0); PLATELET COUNT (AUTO) 148 K/uL (130-400); RED BLOOD CELL COUNT(AUTO) 3.49 MIL/uL (4.50-6.20); RED CELL DISTRIBUTION WIDTH 13.9 % (11.0-15.5); WHITE BLOOD COUNT (AUTO) 6.6 K/uL (4.8-10.8)
[2019-11-07 14:51] LABS: BILIRUBIN,TOTAL 1.4 mg/dL (0.2-1.0); POTASSIUM 4.8 mmol/L (3.5-5.1); TOTAL PROTEIN, SERUM 8.6 g/dL (6.0-8.3)
[2019-11-07 14:56] LABS: CREATININE 12.1 mg/dL (0.5-1.5)
== END 2019-11-07 15:55 | disposition home or self-care (01) ==
LOC: EDH 13:55
DX: H10.31 Unspecified acute conjunctivitis, right eye (principal); I12.0 Hypertensive chronic kidney disease with stage 5 chronic kidney disease or end stage renal disease; E11.22 Type 2 diabetes mellitus with diabetic chronic kidney disease; N18.6 End stage renal disease
CPT/HCPCS: 36415; 70480; 80053; 85025

== ENCOUNTER 2020-02-23 14:42 | Emergency (ER) | payer MEDICARE ==
[2020-02-23] MEDS ORDERED: VANCOMYCIN 1GM+NS 250ML 250 ML IV ONE (15:20)
[2020-02-23] MEDS ORDERED: DiphenhydrAMINE HCL 50 MG/ML VIAL ONE (15:20)
[2020-02-23] MEDS ORDERED: ZOSYN 3.375GM+NS 50ML 50 ML IV ONE (15:20)
[2020-02-23 15:41] LABS: BASOPHILS % (AUTO) 0.5 % (0.0-5.0); EOSINOPHILS % (AUTO) 1.8 % (0.0-8.0); HEMATOCRIT 31.4 % (42-54); LYMPHOCYTES % (AUTO) 8.9 % (21.0-51.0); MEAN CORPUSCULAR HGB CONC 33.8 g/dL (32.0-36.0); MONOCYTES % (AUTO) 11.8 % (3.0-13.0); NEUTROPHILS % (AUTO) 76.6 % (40.0-77.0); PLATELET COUNT (AUTO) 255 K/uL (130-400); RED BLOOD CELL COUNT(AUTO) 3.53 MIL/uL (4.50-6.20); RED CELL DISTRIBUTION WIDTH 13.5 % (11.0-15.5); WHITE BLOOD COUNT (AUTO) 11.8 K/uL (4.8-10.8)
[2020-02-23 15:56] LABS: ALBUMIN 3.6 g/dL (3.5-5.0); BILIRUBIN,TOTAL 1.1 mg/dL (0.2-1.0); CRP QUANTITATIVE 86.2 mg/L (0.00-9.0); POTASSIUM 4.3 mmol/L (3.5-5.1); TOTAL PROTEIN, SERUM 9.5 g/dL (6.0-8.3)
[2020-02-23 15:59] LABS: CREATININE 10.4 mg/dL (0.5-1.5)
[2020-02-23 17:27] LABS: ERYTHROCYTE SEDIMENTATION RATE 100 MM/HR (0-15)
== END 2020-02-23 19:56 | disposition home or self-care (01) ==
LOC: EDH 14:42
DX: L03.211 Cellulitis of face (principal); I12.0 Hypertensive chronic kidney disease with stage 5 chronic kidney disease or end stage renal disease; E11.22 Type 2 diabetes mellitus with diabetic chronic kidney disease; N18.6 End stage renal disease; Z99.2 Dependence on renal dialysis; Z79.899 Other long term (current) drug therapy
CPT/HCPCS: 36415; 80053; 83605; 85025; 85651; 86140; 87040 ×2; 96365; 96366; 96368; 96375; 99284; J1200; J2543; J3370

== ENCOUNTER 2020-08-26 12:55 | Emergency (ER) | payer MEDICARE, OTHER ==
[~2020-08-26 12:55] MED LIST changes: -LISI40TA4 PO; +LISI40TA9 PO
== END 2020-08-26 15:11 | disposition home or self-care (01) ==
LOC: EDH 12:55
DX: S40.011A Contusion of right shoulder, initial encounter (principal); V49.59XA Passenger injured in collision with other motor vehicles in traffic accident, initial encounter; Y93.89 Activity, other specified; Y92.89 Other specified places as the place of occurrence of the external cause; Y99.8 Other external cause status

== ENCOUNTER 2022-08-31 15:06 | Emergency (ER) | payer OTHER ==
[~2022-08-31] VITALS: Ht 162.6 cm; Wt 89.2 kg
[2022-08-31 15:53] LABS: BASOPHILS % (AUTO) 1.4 % (0.0-5.0); EOSINOPHILS % (AUTO) 5.5 % (0.0-8.0); HEMATOCRIT 33.5 % (42-54); LYMPHOCYTES % (AUTO) 11.3 % (21.0-51.0); MEAN CORPUSCULAR HEMOGLOBIN 29.9 pg (27.0-33.0); MEAN CORPUSCULAR HGB CONC 33.4 g/dL (32.0-36.0); MEAN CORPUSCULAR VOLUME 89.6 fL (79-99); MONOCYTES % (AUTO) 20.7 % (3.0-13.0); NEUTROPHILS % (AUTO) 60.8 % (40.0-77.0); PLATELET COUNT (AUTO) 103 K/uL (130-400); RED BLOOD CELL COUNT(AUTO) 3.74 MIL/uL (4.50-6.20); RED CELL DISTRIBUTION WIDTH 15.9 % (11.0-15.5); WHITE BLOOD COUNT (AUTO) 3.6 K/uL (4.8-10.8)
[2022-08-31 16:06] LABS: CREATININE 4.2 mg/dL (0.5-1.5); POTASSIUM 3.6 mmol/L (3.5-5.1)
[2022-08-31 16:11] LABS: ALBUMIN 3.8 g/dL (3.5-5.0); TOTAL PROTEIN, SERUM 8.1 g/dL (6.0-8.3)
[2022-08-31] MEDS ORDERED: LACT10SO9 PO (19:10)
[2022-08-31 19:26] VITALS: BP 152/70
== END 2022-08-31 19:34 | disposition home or self-care (01) ==
LOC: EDH 15:06
DX: K59.00 Constipation, unspecified (principal); I12.0 Hypertensive chronic kidney disease with stage 5 chronic kidney disease or end stage renal disease; N18.6 End stage renal disease; Z99.2 Dependence on renal dialysis; Z79.84 Long term (current) use of oral hypoglycemic drugs; Z79.899 Other long term (current) drug therapy
CPT/HCPCS: 36415; 74176; 80053; 85025

== ENCOUNTER → 2023-01-17 | Outpatient (CLI) | payer OTHER ==
[~2023-01-17] MED LIST changes: +HYDR100T27 PO; +LACT10SO9 PO; +LOSA1TAB54 PO
[2023-01-17 08:47] LABS: BASOPHILS # (AUTO) 0.09 K/uL (0.00-0.20); BASOPHILS % (AUTO) 1.2 % (0.0-5.0); EOSINOPHILS # (AUTO) 0.94 K/uL (0.00-0.70); EOSINOPHILS % (AUTO) 12.2 % (0.0-8.0); HEMATOCRIT 32.5 % (42-54); IMMATURE GRANULOCYTE ABSOLUTE 0.05 K/uL (0-1); LYMPHOCYTES # (AUTO) 0.5 K/uL (1.0-4.8); LYMPHOCYTES % (AUTO) 5.9 % (21.0-51.0); MEAN CORPUSCULAR HEMOGLOBIN 30.6 pg (27.0-33.0); MEAN CORPUSCULAR HGB CONC 32.9 g/dL (32.0-36.0); MEAN CORPUSCULAR VOLUME 92.9 fL (79-99); MONOCYTES % (AUTO) 12.5 % (3.0-13.0); NEUTROPHILS # (AUTO) 5.2 K/uL (1.8-7.7); NEUTROPHILS % (AUTO) 67.5 % (40.0-77.0); PLATELET COUNT (AUTO) 131 K/uL (130-400); RED CELL DISTRIBUTION WIDTH 16.7 % (11.0-15.5); WHITE BLOOD COUNT (AUTO) 7.7 K/uL (4.8-10.8)
[2023-01-17 08:54] LABS: INR 1.04 (0.85-1.15)
[2023-01-17 08:55] LABS: PARTIAL THROMBOPLASTIN TIME 35.3 SEC (26.3-35.5)
[2023-01-17 08:57] LABS: ALBUMIN 3.6 g/dL (3.5-5.0); BILIRUBIN,TOTAL 1.5 mg/dL (0.2-1.0); CREATININE 5.6 mg/dL (0.5-1.5); POTASSIUM 4.3 mmol/L (3.5-5.1); TOTAL PROTEIN, SERUM 8.3 g/dL (6.0-8.3)
[2023-01-19] VITALS (7 sets, daily range): BP systolic 99–126; BP diastolic 47–89; PULSE 69–73; RESP 14–16
== END | disposition home or self-care (01) ==
LOC: RAH 07:19
PROVIDERS: ATTEND Internal Medicine Gastroenterology
DX: Z01.818 Encounter for other preprocedural examination (principal); R18.8 Other ascites; I12.0 Hypertensive chronic kidney disease with stage 5 chronic kidney disease or end stage renal disease; N18.6 End stage renal disease; Z99.2 Dependence on renal dialysis
CPT/HCPCS: 36415; 76705; 80053; 85025; 85610; 85730

== ENCOUNTER 2023-01-19 06:07 | Day surgery (SDC) | payer OTHER ==
[~2023-01-19] VITALS: Ht 162.6 cm; Wt 90.7 kg
[~2023-01-19 06:07] MED LIST changes: -AMOX-426 PO; -GLIP10TA9 PO; -LISI40TA9 PO
[2023-01-19 06:30] VITALS: BP 152/78; PULSE 92; RESP 15
[2023-01-19] MEDS ORDERED: PROPOFOL 10 MG/ML 20ML VIAL IV ONE (08:02)
[2023-01-19] MEDS ORDERED: PHENYLEPHRINE HCL 10 MG/ML 1ML VIAL IV ONE (08:05)
== END 2023-01-19 09:50 | disposition home or self-care (01) ==
LOC: DAH 06:07 → ENDO 06:07
PROVIDERS: ATTEND Internal Medicine Gastroenterology
DX: R19.4 Change in bowel habit (principal); D50.9 Iron deficiency anemia, unspecified; K29.50 Unspecified chronic gastritis without bleeding; K31.89 Other diseases of stomach and duodenum; E11.22 Type 2 diabetes mellitus with diabetic chronic kidney disease; I12.0 Hypertensive chronic kidney disease with stage 5 chronic kidney disease or end stage renal disease; N18.6 End stage renal disease; K76.89 Other specified diseases of liver; G47.30 Sleep apnea, unspecified; R18.8 Other ascites; Z79.899 Other long term (current) drug therapy; Z79.01 Long term (current) use of anticoagulants; Z99.2 Dependence on renal dialysis
CPT/HCPCS: 82948 ×2; 43239; 45378; J2704; J2371; A4620; A4215 ×2; A4223; A7002; A4222; A4221; A4663; A4216; J7030; A4606; J3490

== ENCOUNTER → 2023-09-14 | Outpatient (CLI) | payer OTHER ==
[~2023-09-14] MED LIST changes: +HYDR100T15 PO; -HYDR100T27 PO; +PANT40TA54 PO
[2023-09-14 10:32] LABS: BASOPHILS # (AUTO) 0.05 K/uL (0.00-0.20); BASOPHILS % (AUTO) 0.9 % (0.0-5.0); EOSINOPHILS % (AUTO) 3.5 % (0.0-8.0); HEMATOCRIT 32.5 % (42-54); IMMATURE GRANULOCYTE ABSOLUTE 0.03 K/uL (0-1); LYMPHOCYTES # (AUTO) 0.6 K/uL (1.0-4.8); LYMPHOCYTES % (AUTO) 10.5 % (21.0-51.0); MEAN CORPUSCULAR HEMOGLOBIN 31.9 pg (27.0-33.0); MEAN CORPUSCULAR VOLUME 99.7 fL (79-99); MONOCYTES # (AUTO) 0.9 K/uL (0.1-1.0); MONOCYTES % (AUTO) 16.4 % (3.0-13.0); NEUTROPHILS # (AUTO) 3.9 K/uL (1.8-7.7); NEUTROPHILS % (AUTO) 68.2 % (40.0-77.0); PLATELET COUNT (AUTO) 133 K/uL (130-400); RED BLOOD CELL COUNT(AUTO) 3.26 MIL/uL (4.50-6.20); RED CELL DISTRIBUTION WIDTH 14.3 % (11.0-15.5); WHITE BLOOD COUNT (AUTO) 5.7 K/uL (4.8-10.8)
[2023-09-14 10:36] LABS: ALBUMIN 3.5 g/dL (3.5-5.0); BILIRUBIN,TOTAL 1.5 mg/dL (0.2-1.0); CREATININE 5.7 mg/dL (0.5-1.3); POTASSIUM 4.2 mmol/L (3.5-5.1); TOTAL PROTEIN, SERUM 8.3 g/dL (6.0-8.3)
[2023-09-14 10:39] LABS: INR 1.06 (0.85-1.15); PROTHROMBIN TIME 12.5 SEC (9.6-11.6)
[2023-09-14 14:16] LABS: ALBUMIN,BODY FLUID 2.3 g/dL
[2023-09-14 17:01] LABS: BODY FLUID RBC 6593 /cu. mm.; BODY FLUID WBC 350 /cu. mm.
[2023-09-14 19:48] LABS: APPEARANCE BODY FLUID CLOUDY (CLEAR); COLOR,BODY FLUID ORANGE (LT YELLOW); SPECIMENTYPE,BODY FLUID ASCITES; TOTAL VOLUME,BODY FLUID 3800 mL
[2023-09-14 20:53] LABS: BF LYMPHOCYTE 12 %; BF MACROPHAGE 80; BF OTHER CELLS 3; BF TOTAL CELLS COUNTED 100
== END | disposition home or self-care (01) ==
LOC: RAH 09:27
PROVIDERS: ATTEND Internal Medicine
DX: R18.8 Other ascites (principal); K74.69 Other cirrhosis of liver; K25.9 Gastric ulcer, unspecified as acute or chronic, without hemorrhage or perforation; I85.10 Secondary esophageal varices without bleeding; D64.9 Anemia, unspecified; N40.0 Benign prostatic hyperplasia without lower urinary tract symptoms; E11.22 Type 2 diabetes mellitus with diabetic chronic kidney disease; I12.0 Hypertensive chronic kidney disease with stage 5 chronic kidney disease or end stage renal disease; N18.6 End stage renal disease; Z99.2 Dependence on renal dialysis; Z79.899 Other long term (current) drug therapy
CPT/HCPCS: 49083; 84157; 80053; 85025; 89051; 85610; 85730; 87071; 87076; 87205; 82042; 36415; 88305; 88112; C1729

== ENCOUNTER → 2024-01-23 | Outpatient (CLI) | payer OTHER ==
[~2024-01-23] MED LIST changes: +ALBUMIN (HUMAN) 25% 200 ML IV ONE
[2024-01-23 09:16] LABS: BASOPHILS # (AUTO) 0.06 K/uL (0.00-0.20); BASOPHILS % (AUTO) 1.1 % (0.0-5.0); EOSINOPHILS # (AUTO) 0.27 K/uL (0.00-0.70); EOSINOPHILS % (AUTO) 5.1 % (0.0-8.0); HEMATOCRIT 36.3 % (42-54); IMMATURE GRANULOCYTE ABSOLUTE 0.03 K/uL (0-1); LYMPHOCYTES # (AUTO) 0.6 K/uL (1.0-4.8); LYMPHOCYTES % (AUTO) 12.1 % (21.0-51.0); MEAN CORPUSCULAR HEMOGLOBIN 31.2 pg (27.0-33.0); MEAN CORPUSCULAR HGB CONC 32.8 g/dL (32.0-36.0); MEAN CORPUSCULAR VOLUME 95.3 fL (79-99); MONOCYTES # (AUTO) 0.8 K/uL (0.1-1.0); MONOCYTES % (AUTO) 14.8 % (3.0-13.0); NEUTROPHILS # (AUTO) 3.5 K/uL (1.8-7.7); NEUTROPHILS % (AUTO) 66.3 % (40.0-77.0); PLATELET COUNT (AUTO) 139 K/uL (130-400); RED BLOOD CELL COUNT(AUTO) 3.81 MIL/uL (4.50-6.20); RED CELL DISTRIBUTION WIDTH 14.6 % (11.0-15.5); WHITE BLOOD COUNT (AUTO) 5.3 K/uL (4.8-10.8)
[2024-01-23 09:22] LABS: INR 1.13 (0.85-1.15); PROTHROMBIN TIME 12.1 SEC (9.6-11.6)
[2024-01-23 09:24] LABS: PARTIAL THROMBOPLASTIN TIME 33.3 SEC (26.3-35.5)
[2024-01-23 09:26] LABS: ALBUMIN 3.7 g/dL (3.5-5.0); BILIRUBIN,TOTAL 1.6 mg/dL (0.2-1.0); CREATININE 6.7 mg/dL (0.5-1.3); POTASSIUM 5.1 mmol/L (3.5-5.1); TOTAL PROTEIN, SERUM 8.6 g/dL (6.0-8.3)
[2024-01-23 11:48] LABS: APPEARANCE BODY FLUID CLEAR (CLEAR); COLOR,BODY FLUID YELLOW (LT YELLOW); SPECIMENTYPE,BODY FLUID ASCITES; TOTAL VOLUME,BODY FLUID 4200 mL
[2024-01-23 12:02] LABS: BODY FLUID RBC 2722 /cu. mm.; BODY FLUID WBC 378 /cu. mm.
[2024-01-23 12:30] LABS: BF LYMPHOCYTE 15 %; BF MESOTHELIAL 71 %; BF MONOCYTE 12 %; BF TOTAL CELLS COUNTED 100
== END | disposition home or self-care (01) ==
LOC: RAH 08:22
PROVIDERS: ATTEND Internal Medicine Gastroenterology
DX: R18.8 Other ascites (principal); K76.9 Liver disease, unspecified; I85.10 Secondary esophageal varices without bleeding; K25.9 Gastric ulcer, unspecified as acute or chronic, without hemorrhage or perforation; K80.20 Calculus of gallbladder without cholecystitis without obstruction; N40.0 Benign prostatic hyperplasia without lower urinary tract symptoms; R94.6 Abnormal results of thyroid function studies; I12.0 Hypertensive chronic kidney disease with stage 5 chronic kidney disease or end stage renal disease; E11.22 Type 2 diabetes mellitus with diabetic chronic kidney disease; N18.6 End stage renal disease; Z99.2 Dependence on renal dialysis; Z79.899 Other long term (current) drug therapy
CPT/HCPCS: 49083; 80053; 85025; 89051; 85610; 85730; 36415; P9046; C1729; 96365

== ENCOUNTER 2024-02-04 09:48 | Emergency (ER) | payer OTHER ==
[~2024-02-04] VITALS: Ht 162.6 cm; Wt 77.6 kg
[~2024-02-04 09:48] MED LIST changes: -ALBUMIN (HUMAN) 25% 200 ML IV ONE
[2024-02-04 09:50] VITALS: BP 125/88; PULSE 69; RESP 16; TEMP 98.3
[2024-02-04] MEDS ORDERED: ACET-2079 PO (11:28)
== END 2024-02-04 11:48 | disposition home or self-care (01) ==
LOC: EDH 09:48
DX: S83.92XA Sprain of unspecified site of left knee, initial encounter (principal); I10 Essential (primary) hypertension; Z88.8 Allergy status to other drugs, medicaments and biological substances; Z79.899 Other long term (current) drug therapy; Z98.890 Other specified postprocedural states; W01.0XXA Fall on same level from slipping, tripping and stumbling without subsequent striking against object, initial encounter; Y93.89 Activity, other specified; Y92.89 Other specified places as the place of occurrence of the external cause; Y99.8 Other external cause status
CPT/HCPCS: 73562; 73610; 73630

== ENCOUNTER → 2024-03-19 | Outpatient (CLI) | payer OTHER ==
[~2024-03-19] MED LIST changes: +ACET-2079 PO
--- NOTE | 2024-03-19 09:30 | NUR ---
U/S GD PARACENTESIS TOLERATED PROCEDURE. PERFORMED BY DR Skip KOENIG. PUNCTURE SITE TO RLQ. 2.0 LITERS OF LIZBET CLOUDY FLUID REMOVED. SPECIMEN SENT TO LAB. END OF PROCEDURE AT 0900. DRESSING DRY AND INTACT. DISCHARGE INSTRUCTIONS GIVEN. VERBALIZED UNDERSTANDING. DISCHARGE VIA WHEELCHAIR WITH SISTER. DENIES PAIN. A&O
--- NOTE | 2024-03-19 11:01 | HMCIMG ---
US ABDOMINAL PARACENTESIS IR REASON: ASCITES TECHNIQUE: Paracentesis was performed with ultrasound guidance. The puncture site was selected in the right upper quadrant and overlying skin prepped and draped in a sterile fashion. 1% Xylocaine infiltration was performed. Catheter was placed in the fluid using trocar technique. 2 L were removed. Fluid sample was submitted for laboratory evaluation. The patient showed no evidence of complication during the procedure. IMPRESSION: 1. Ultrasound-guided paracentesis.
[2024-03-19 13:04] LABS: APPEARANCE BODY FLUID SLIGHTLY CLOUDY (CLEAR); SPECIMENTYPE,BODY FLUID ASCITES
[2024-03-19 13:05] LABS: COLOR,BODY FLUID ORANGE (LT YELLOW); TOTAL VOLUME,BODY FLUID 2000 mL
[2024-03-19 14:56] LABS: BODY FLUID RBC 11895 /cu. mm.; BODY FLUID WBC 381 /cu. mm.
[2024-03-19 16:59] LABS: BF LYMPHOCYTE 8 %; BF MACROPHAGE 78; BF MESOTHELIAL 6 %; BF MONOCYTE 1 %; BF OTHER CELLS 4; BF TOTAL CELLS COUNTED 100
== END | disposition home or self-care (01) ==
LOC: RAH 08:11
PROVIDERS: ATTEND Internal Medicine Gastroenterology
DX: R18.8 Other ascites (principal); I85.10 Secondary esophageal varices without bleeding; E11.22 Type 2 diabetes mellitus with diabetic chronic kidney disease; I12.0 Hypertensive chronic kidney disease with stage 5 chronic kidney disease or end stage renal disease; N18.6 End stage renal disease; K21.9 Gastro-esophageal reflux disease without esophagitis; Z99.2 Dependence on renal dialysis; Z88.8 Allergy status to other drugs, medicaments and biological substances; Z79.899 Other long term (current) drug therapy; Z98.890 Other specified postprocedural states
CPT/HCPCS: 49083; 89051; C1729

== ENCOUNTER → 2024-04-16 | Outpatient (CLI) | payer OTHER ==
[~2024-04-16] MED LIST changes: +FOLI0.8C PO; +LEVO25TA54 PO
[2024-04-16 09:03] LABS: INR 1.09 (0.85-1.15); PROTHROMBIN TIME 12.1 SEC (9.6-11.6)
[2024-04-16 09:04] LABS: BASOPHILS # (AUTO) 0.05 K/uL (0.00-0.20); BASOPHILS % (AUTO) 0.9 % (0.0-5.0); EOSINOPHILS # (AUTO) 0.29 K/uL (0.00-0.70); EOSINOPHILS % (AUTO) 5.5 % (0.0-8.0); HEMATOCRIT 32.1 % (42-54); IMMATURE GRANULOCYTE ABSOLUTE 0.02 K/uL (0-1); LYMPHOCYTES # (AUTO) 0.6 K/uL (1.0-4.8); LYMPHOCYTES % (AUTO) 10.7 % (21.0-51.0); MEAN CORPUSCULAR HEMOGLOBIN 31.3 pg (27.0-33.0); MEAN CORPUSCULAR HGB CONC 32.4 g/dL (32.0-36.0); MEAN CORPUSCULAR VOLUME 96.7 fL (79-99); MONOCYTES # (AUTO) 0.9 K/uL (0.1-1.0); MONOCYTES % (AUTO) 17.1 % (3.0-13.0); NEUTROPHILS # (AUTO) 3.5 K/uL (1.8-7.7); NEUTROPHILS % (AUTO) 65.4 % (40.0-77.0); PLATELET COUNT (AUTO) 161 K/uL (130-400); RED BLOOD CELL COUNT(AUTO) 3.32 MIL/uL (4.50-6.20); RED CELL DISTRIBUTION WIDTH 14.2 % (11.0-15.5); WHITE BLOOD COUNT (AUTO) 5.3 K/uL (4.8-10.8)
[2024-04-16 09:05] LABS: PARTIAL THROMBOPLASTIN TIME 34.7 SEC (26.3-35.5)
[2024-04-16 09:06] LABS: ALBUMIN 3.4 g/dL (3.5-5.0); BILIRUBIN,TOTAL 1.5 mg/dL (0.2-1.0); CREATININE 5.1 mg/dL (0.5-1.3); POTASSIUM 4.8 mmol/L (3.5-5.1); TOTAL PROTEIN, SERUM 8.1 g/dL (6.0-8.3)
--- NOTE | 2024-04-16 09:45 | NUR ---
U/S GD PARACENTESIS TOLERATED PROCEDURE. PERFORMED BY DR Dakota SCHAEFFER. 1.5 LITERS OF YELLOW CLOUDY FLUID REMOVED AND SENT TO LAB. END OF PROCEDURE AT 0925. PUNCTURE SITE TO RLQ. DRESSING DRY AND INTACT. NO BLEEDING NOTED. DISCHARGE INSTRUCTIONS GIVEN TO PT AND SISTER. VERBALIZED UNDERSTANDING. DISCHARGE VIA WHEELCHAIR. DENIES PAIN. A&O.
[2024-04-16 13:41] LABS: BODY FLUID RBC 5882 /cu. mm.; BODY FLUID WBC 540 /cu. mm.
[2024-04-16 13:51] LABS: APPEARANCE BODY FLUID SLIGHTLY CLOUDY (CLEAR); SPECIMENTYPE,BODY FLUID ASCITES
[2024-04-16 13:52] LABS: COLOR,BODY FLUID YELLOW (LT YELLOW); TOTAL VOLUME,BODY FLUID 1500 mL
[2024-04-16 14:03] LABS: BF LYMPHOCYTE 39 %; BF MACROPHAGE 48; BF MESOTHELIAL 7 %; BF MONOCYTE 3 %; BF TOTAL CELLS COUNTED 100
--- NOTE | 2024-04-16 15:25 | HMCIMG ---
US ABDOMINAL PARACENTESIS IR HISTORY: No additional history given. COMPARISON: None TECHNIQUE: Informed consent was obtained. Risks and benefits were explained to the patient. A timeout was performed. Patient was prepped and draped in a sterile fashion. Local anesthetics was given as required. Under ultrasound guidance, ascites fluid was localized. Paracentesis was performed. FINDINGS: 1.5 L of yellowish fluid was aspirated. Less than 2 cc blood loss is noted. Patient tolerated procedure without complication. Patient left the department in good condition. IMPRESSION: 1. Uncomplicated ultrasound guidance paracentesis.
== END | disposition home or self-care (01) ==
LOC: RAH 07:41
PROVIDERS: ATTEND Internal Medicine Gastroenterology
DX: R18.8 Other ascites (principal); Z79.01 Long term (current) use of anticoagulants; I12.0 Hypertensive chronic kidney disease with stage 5 chronic kidney disease or end stage renal disease; E11.22 Type 2 diabetes mellitus with diabetic chronic kidney disease; Z98.890 Other specified postprocedural states; Z79.899 Other long term (current) drug therapy; Z99.2 Dependence on renal dialysis; K76.9 Liver disease, unspecified
CPT/HCPCS: 49083; 80053; 85025; 89051; 85610; 85730; 36415; C1729

== ENCOUNTER 2024-04-23 07:59 | Day surgery (SDC) | payer OTHER ==
[2024-04-23] VITALS (11 sets, daily range): BP systolic 74–144; BP diastolic 48–67; PULSE 61–70; RESP 9–18; TEMP 97.1–98.1
[~2024-04-23] VITALS: Ht 162.6 cm; Wt 77.1 kg
[~2024-04-23 07:59] MED LIST changes: -FOLI0.8C PO; -LEVO25TA54 PO
[2024-04-23] MEDS ORDERED: FOLI0.8C PO (09:28)
[2024-04-23] MEDS ORDERED: LEVO25TA54 PO (09:28)
[2024-04-23] MEDS: 0.9% NACL 500ML IV.SOLN 500 ML IV ONE (09:33)
[2024-04-23] MEDS ORDERED: proPOFol 10 MG/ML 20ML VIAL IV ONE (11:35)
--- NOTE | 2024-04-23 13:02 | NUR ---
FULL AND COMPLETE DISCHARGE INSTRUCTIONS GIVEN BOTH VERBALLY AND IN WRITING TO PATIENT AND FAMILY. ALL QUESTIONS ANSWERED. PIV REMOVED WITH CATHETER TIP INTACT. PATIENT TO HAVE ANOTHER MEDICAL APPOINTMENT EARLY THIS AFTERNOON. FACILITATED QUICK DISCHARGE PER SISTERS REQUEST. PATIENT STABLE WITHOUT ISSUE. DENIES CURRENT PAIN OR NAUSEA. VOICED UNDERSTANDING TO EGD INSTRUCTIONS AND FOLLOW UP. W/C TO POV WITH FAMILY TO HOME.
== END 2024-04-23 12:50 | disposition home or self-care (01) ==
LOC: DAH 07:59 → ENDO 07:59
PROVIDERS: ATTEND Internal Medicine Gastroenterology
DX: I85.00 Esophageal varices without bleeding (principal); R18.8 Other ascites; K76.9 Liver disease, unspecified; K31.9 Disease of stomach and duodenum, unspecified; D64.9 Anemia, unspecified; K80.20 Calculus of gallbladder without cholecystitis without obstruction; I12.0 Hypertensive chronic kidney disease with stage 5 chronic kidney disease or end stage renal disease; N18.6 End stage renal disease; E11.22 Type 2 diabetes mellitus with diabetic chronic kidney disease; N40.0 Benign prostatic hyperplasia without lower urinary tract symptoms; K76.6 Portal hypertension; K29.70 Gastritis, unspecified, without bleeding; E66.9 Obesity, unspecified; R94.6 Abnormal results of thyroid function studies; Z79.899 Other long term (current) drug therapy; Z87.898 Personal history of other specified conditions; K31.89 Other diseases of stomach and duodenum; Z68.29 Body mass index [BMI] 29.0-29.9, adult
CPT/HCPCS: 82948 ×2; 43239; J7040; J2704; A4620; A4215; A4223; A7002; A4222; A4221; A4663; J7030; A4606; J3490

== ENCOUNTER → 2024-05-14 | Outpatient (CLI) | payer OTHER ==
[~2024-05-14] MED LIST changes: -ACET-2079 PO; +FOLI0.8C PO; -LACT10SO9 PO; +LEVO25TA54 PO
--- NOTE | 2024-05-14 10:50 | NUR ---
U/S GD PARACENTESIS TOLERATED PROCEDURE. PERFORMED BY DR Joshua PARADA. 3.5 LITERS OF LIZBET CLOUDY FLUID REMOVED AND SENT TO LAB. PUNCTURE SITE TO Q. END OF PROCEDURE AT 1030. DRESSING DRY AND INTACT. NO BLEEDING NOTED. DISCHARGE INSTRUCTIONS GIVEN. VERBALIZED UNDERSTANDING. DENIES PAIN. A&O.
--- NOTE | 2024-05-14 11:46 | HMCIMG ---
ULTRASOUND GUIDED PARACENTESIS: INDICATION: Ascites TECHNIQUE: Informed consent was obtained. Timeout performed. All elements of maximal sterile barrier technique, including hand hygiene and cutaneous antisepsis were used. Patient was placed supine. Left lower quadrant was prepped and draped in sterile fashion. Local anesthesia was applied. Then, under ultrasound guidance, a 5F centesis needle was advanced through the abdominal wall and into a pocket of fluid in the peritoneum. It yielded 3.5 L of fluid. The catheter was removed and sterile dressing applied. Blood pressure monitoring was performed during the procedure. Complications: None Blood loss: <5 mL. IMPRESSION: Successful ultrasound guided paracentesis.
[2024-05-14 13:16] LABS: BODY FLUID RBC 4602 /cu. mm.; BODY FLUID WBC 316 /cu. mm.
[2024-05-14 14:00] LABS: APPEARANCE BODY FLUID SLIGHTLY CLOUDY (CLEAR); COLOR,BODY FLUID YELLOW (LT YELLOW); SPECIMENTYPE,BODY FLUID ASCITES; TOTAL VOLUME,BODY FLUID 3500 mL
[2024-05-14 14:04] LABS: BF LYMPHOCYTE 48 %; BF MACROPHAGE 30; BF MESOTHELIAL 16 %; BF MONOCYTE 4 %; BF TOTAL CELLS COUNTED 100
== END | disposition home or self-care (01) ==
LOC: RAH 09:09
PROVIDERS: ATTEND Internal Medicine Gastroenterology
DX: R18.8 Other ascites (principal); E11.22 Type 2 diabetes mellitus with diabetic chronic kidney disease; N18.6 End stage renal disease; Z87.891 Personal history of nicotine dependence; Z79.890 Hormone replacement therapy; Z83.3 Family history of diabetes mellitus; Z82.49 Family history of ischemic heart disease and other diseases of the circulatory system; Z79.899 Other long term (current) drug therapy
CPT/HCPCS: 49083; 89051; C1729

== ENCOUNTER 2024-05-16 17:09 | Emergency (ER) | payer OTHER ==
[~2024-05-16] VITALS: Ht 162.6 cm; Wt 78.5 kg
--- NOTE | 2024-05-16 17:58 | ERN ---
ED Note History of Present Illness Stated Complaint: LEFT LEG PAIN, POSSIBLE FRACTURE Time Seen by MD: 17:15 Time Seen by Midlevel: 17:15 Dictation: Mr. Torres is a 38-year-old gentleman with history of end-stage renal disease on hemodialysis, hypertension, GERD, hypothyroidism, peripheral neuropathy, and blindness who presented to the emergency department this afternoon for evaluation of leg pain. He states that on Monday he noticed his left lower leg was very itchy but the symptoms subsided on Monday. Monday itching returned and he had some pain to his lower leg. He states that he did sustain a fall approximately four months ago and at that time he had pain to his left knee and his ankle. He went to the [facility] emergency center earlier today and he had an x-ray done which revealed a comminuted impaction articular fracture/deformity of the proximal left tibial metaphysis. Left knee immobilizer was applied. He states there was swelling of the lower leg so they performed an ultrasound. He states he did not think they were being kind and would not explain anything so he signed out AMA. He brings a copy of his x-ray report but was unable to obtain the US report. He reports pain with weight bearing but denies pain at rest. He states he has decreased sensation to his feet due to peripheral neuropathy Allergies: Coded Allergies: No Known Drug Allergies (Unverified Allergy, Unknown, 12/20/13) broccoli (Unverified Adverse Reaction, Unknown, 09/22/17) LOOSE STOOLS Home Meds Active Scripts Pantoprazole Sodium (Pantoprazole Sodium) 40 Mg Tablet., 40 MG PO BID for 15 Days, #30 TAB Prov:NILSA ROSALES AGACNHuber 04/13/23 Reported Medications Folic Acid (Folic Acid) 0.8 Mg Capsule, 1 CAP PO DAILY for 30 Days, #30 CAP 0 Refills 04/23/24 Levothyroxine Sodium (Levothyroxine Sodium) 25 Mcg Tablet, 1 TAB PO DAILY for 30 Days, #30 TAB 0 Refills 04/23/24 Pantoprazole Sodium (Pantoprazole Sodium) 40 Mg Tablet.dr, 40 MG PO BID, TAB 04/13/23 Losartan/Hydrochlorothiazide (Losartan-Hctz 100-25 mg Tab) 100 Mg-25 Mg Tablet, 1 EACH PO DAILY, TAB 01/18/23 Hydralazine HCl (Hydralazine HCl) 100 Mg Tablet, 100 MG PO TID, TAB 01/18/23 Amlodipine Besylate (Norvasc 5Mg Tab) 5 Mg Tablet, 5 MG PO DAILY, TAB 09/18/18 Sevelamer HCl (Sevelamer HCl) 800 Mg Tablet, 800 MG PO TIDMEALS, TAB 09/18/18 Past Medical History Past Medical History: Hypertension, Renal Failure Additional Past Medical Hx: BLIND, CANT 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 EYES: Blind per baseline EARS, NOSE, AND THROAT: No difficulties with hearing. No symptoms of rhinitis or sore throat. CARDIOVASCULAR: Patient denies chest pains, palpitations, orthopnea and paroxysmal nocturnal dyspnea. RESPIRATORY: No dyspnea on exertion, no wheezing or cough. GI: No nausea, vomiting, diarrhea, constipation, abdominal pain, hematochezia or melena. : No urinary hesitancy or dribbling. No nocturia or urinary frequency. No abnormal urethral discharge. MUSCULOSKELETAL: Reports pain and swelling left lower leg. NEUROLOGIC: No chronic headaches, no seizures. Patient denies numbness, tingling or weakness. PSYCHIATRIC: Patient denies problems with mood disturbance. No problems with anxiety. ENDOCRINE: No excessive urination or excessive thirst. DERMATOLOGIC: Patient denies any rashes or skin changes. Reports having some itching to the left lower leg Initial Vital Sign VS Vital Signs Date Time Temp Pulse Resp B/P (MAP) Pulse Ox O2 Delivery O2 Flow Rate FiO2 05/16/24 17:57 98.4 90 18 142/89 95 Room Air 0 05/16/24 18:11 21 Physical Exam Dictation Vital signs: Reviewed. Afebrile. Constitutional: No acute distress. Non-toxic appearing. Head/Face: Normocephalic, atraumatic. Eyes: Periorbital areas with no swelling, redness, or edema. Lids and lashes are normal. opaque. Blind. ENT: Pinnas intact and no signs of trauma or erythema. Ear canals clear and no discharge. TMs no erythema. No nasal discharge or bleeding noted. Oropharynx with no exudate, redness, swelling, masses, exudates, or evidence of obstruction. Uvula midline. Mucous membranes moist. Neck: Trachea midline, no masses palpated, and no cervical lymphadenopathy. No swelling. Supple, full range of motion. Chest/Axilla: No tenderness, no crepitus, no paradoxical movement, no retractions. Cardiovascular: Regular rate, regular rhythm, no murmur, no gallops. Symmetric pulses. No peripheral edema. BP 142/89 Respiratory: Respirations even and unlabored. Lung sounds clear; no wheezes, rales or rhonchi. Room air spo2 98% Gastrointestinal: Inspection is normal. No distention is appreciated. Bowel sounds are normal. No mass or organomegaly . There is no tenderness. No rebound. No rigidity. No voluntary or involuntary guarding. No Anthony's sign. Neurological: Normal speech, gross motor function intact, gross sensory function intact. No focal weakness/Paresthesia. Musculoskeletal/Extremities: Symmetric pulses. LLE edematous. He has decreased sensation to the left foot/toes per his baseline; history of neuropathy. He has good color and movement of toes. Capillary refill is less than 3 seconds. He has had knee immobilizer in place. Integumentary: Intact. Skin is normal color, warm and dry. Cap refill less than 3 seconds. ED Course ED Course Orders Procedure Category Date Status Time Tibia/Fibula 2vws Lt RAD 05/16/24 Resulted 17:56 Us Venous Doppler US 05/16/24 Resulted Unilateral 17:56 Orthopedic Consult CONPHYSVC 05/16/24 Transmitted 19:08 Vital Signs Date Time Temp Pulse Resp B/P (MAP) Pulse Ox O2 Delivery O2 Flow Rate FiO2 05/16/24 18:11 98.4 90 18 142/89 98 Room Air* 0 21 05/16/24 17:57 98.4 90 18 142/89 95 Room Air 0 Uneventful ED course. Patient has been pleasant and cooperative. Ultrasound of the left lower extremity venous negative for DVT. X-ray of the left tib-fib revealed slightly displaced comminuted articular impaction fracture deformity through the proximal left tibia metaphysis including fracture line extension through the left medial tibial eminence with 4 mm distraction included. He states he only has pain with weight-bearing. I spoke with Dr. Zack Miller on-call for Orthopedic surgery and discussed case. He states he would have patient remain nonweightbearing and he can call tomorrow to his office in [place] to schedule an appointment. Medical Decision Making MDM MDM: Differential diagnosis: tib/fib fracture, DVT, contusion Rationale: Tests considered and ordered secondary to shared decision making include: Previous outside records reviewed: Old ER visits. Risk of complication and/or morbidity or mortality of patient management: None Medications-Per medication reconciliation Need for hospitalization: Patient does not meet criteria for hospitalization. Need for emergency major/minor surgery: No There are no social concerns with this patient. Prescription drug management: OTC Tylenol Prescriptions will include symptomatic care Patient's prior external medical records from other ER visits were reviewed by me as indicated. Prior testing and results from previous visits were reviewed. Prior tests were taken into account with medical decision making and resource utilization, independent historian/historians were used to obtain complete medical history. I independently interpreted the test that were performed, results were reviewed by me and considered findings on radiology if ordered. Medical management and examination interpretation discussions were had by me with other qualified healthcare professionals as indicated for the patient's care. DX & DISP Disposition: Discharge Departure Impression: Primary Impression: Pruritus Additional Impression: Fracture of tibia, left, closed Condition: Stable Additional Instructions: Remain nonweightbearing to the left leg; use your wheelchair. May wear knee immobilizer. Elevate left lower extremity. May take [id number] Tylenol as needed for discomfort Please call Dr. Zack Miller's office tomorrow for appointment: . His office is located at [address] [place] [address] [address] [place]. Please return to the emergency department for any worsening of symptoms or concern. Referrals: TOUL NEAL M.D. (PCP) Time of Disposition: 20:00 DORY SHEEHAN NP May 16, 2024 17:58
--- NOTE | 2024-05-16 18:30 | HMCIMG ---
LEFT TIBIA AND FIBULA RADIOGRAPHS - 2 VIEWS INDICATION: Pain COMPARISON: None. FINDINGS: AP and lateral views. Extensive outflow and runoff arterial wall calcific plaque. Slightly displaced comminuted articular impaction fracture deformity through the proximal left tibial metaphysis, including fracture line extension through the medial tibial eminence with 4 mm distraction included.
--- NOTE | 2024-05-16 18:47 | HMCIMG ---
ULTRASOUND VENOUS DOPPLER LEFT LOWER EXTREMITY INDICATION: Left lower extremity swelling. TECHNIQUE: Routine grayscale and color Doppler ultrasound of the left lower extremity veins performed. COMPARISON: None. FINDINGS: The demonstrated veins of the left lower extremity including the common femoral vein, femoral vein, and popliteal vein are associated with normal compressibility, augmentation, and flow. Normal respiratory variation was identified. No evidence for echogenic intraluminal thrombus. A couple of nonspecific left groin lymph nodes retain a normal reniform shape and fatty hilum without any surrounding hypervascularity or edema. 5.5 x 3.5 x 2.0 cm anechoic fluid collection demonstrated along the posteromedial left knee near the popliteal fossa. 8.7 x 1.8 x 4.7 cm complex nonvascular aggregate with mixed echogenicity demonstrated along the lateral proximal left leg. IMPRESSION: No evidence for deep venous thrombosis. 8.7 x 1.8 x 4.7 cm left upper calf hematoma or less likely, nontypical lipoma. 5.5 x 3.5 x 2.0 cm posterior left knee Orellana's cyst.
[2024-05-16 20:08] VITALS: BP 142/89; PULSE 90; RESP 18; TEMP 98.4; O2SAT 95
== END 2024-05-16 20:13 | disposition home or self-care (01) ==
LOC: EDH 17:09
DX: S82.252A Displaced comminuted fracture of shaft of left tibia, initial encounter for closed fracture (principal); L29.9 Pruritus, unspecified; I10 Essential (primary) hypertension; Z79.890 Hormone replacement therapy; Z79.899 Other long term (current) drug therapy; Z98.890 Other specified postprocedural states; W18.39XA Other fall on same level, initial encounter; Y93.89 Activity, other specified; Y92.89 Other specified places as the place of occurrence of the external cause; Y99.8 Other external cause status
CPT/HCPCS: 73590; 93971; 99284

== ENCOUNTER → 2024-07-04 | Outpatient (CLI) | payer OTHER ==
[~2024-07-04] MED LIST changes: +ALBUMIN HUMAN 25% 200 ML IV ONE
--- NOTE | 2024-07-04 10:05 | NUR ---
U/S GD PARACENTESIS TOLERATED PROCEDURE. PERFORMED BY DR Dakota SCHAEFFER. 7.0 LITER OF ORANGE CLOUDY ASCITES FLUID REMOVED AND SENT TO LAB. ALBUMIN 25% 50 GRAMS GIVEN. PUNCTURE SITE TO LLQ. END OF PROCEDURE 944. DRESSING DRY AND INTACT. NO BLEEDING NOTED. DISCHARGE INSTRUCTIONS GIVEN. VERBALIZED UNDERSTANDING. DISCHARGE VIA WHEELCHAIR. DENIES PAIN. A&O.
[2024-07-04] MEDS: ALBUMIN HUMAN 25% 200 ML IV ONE (10:09)
[2024-07-04 10:17] LABS: BASOPHILS # (AUTO) 0.07 K/uL (0.00-0.20); BASOPHILS % (AUTO) 1.2 % (0.0-5.0); EOSINOPHILS # (AUTO) 0.31 K/uL (0.00-0.70); EOSINOPHILS % (AUTO) 5.3 % (0.0-8.0); HEMATOCRIT 37.5 % (42-54); IMMATURE GRANULOCYTE ABSOLUTE 0.02 K/uL (0-1); LYMPHOCYTES # (AUTO) 0.7 K/uL (1.0-4.8); LYMPHOCYTES % (AUTO) 11.5 % (21.0-51.0); MEAN CORPUSCULAR HEMOGLOBIN 31.1 pg (27.0-33.0); MEAN CORPUSCULAR VOLUME 97.2 fL (79-99); MONOCYTES # (AUTO) 0.8 K/uL (0.1-1.0); MONOCYTES % (AUTO) 14.4 % (3.0-13.0); NEUTROPHILS # (AUTO) 3.9 K/uL (1.8-7.7); NEUTROPHILS % (AUTO) 67.3 % (40.0-77.0); PLATELET COUNT (AUTO) 127 K/uL (130-400); RED BLOOD CELL COUNT(AUTO) 3.86 MIL/uL (4.50-6.20); RED CELL DISTRIBUTION WIDTH 16.8 % (11.0-15.5); WHITE BLOOD COUNT (AUTO) 5.8 K/uL (4.8-10.8)
[2024-07-04 10:21] LABS: INR 1.18 (0.85-1.15); PROTHROMBIN TIME 12.3 SEC (9.6-11.6)
[2024-07-04 10:22] LABS: PARTIAL THROMBOPLASTIN TIME 34.5 SEC (26.3-35.5)
[2024-07-04 10:26] LABS: ALBUMIN 3.6 g/dL (3.5-5.0); BILIRUBIN,TOTAL 1.2 mg/dL (0.2-1.0); CREATININE 5.8 mg/dL (0.5-1.3); POTASSIUM 4.7 mmol/L (3.5-5.1); TOTAL PROTEIN, SERUM 7.8 g/dL (6.0-8.3)
[2024-07-04 13:32] LABS: APPEARANCE BODY FLUID SLIGHTLY CLOUDY (CLEAR); COLOR,BODY FLUID YELLOW (LT YELLOW); SPECIMENTYPE,BODY FLUID ASCITES
[2024-07-04 13:33] LABS: BODY FLUID RBC 7162 /cu. mm.; BODY FLUID WBC 562 /cu. mm.
[2024-07-04 14:02] LABS: BF LYMPHOCYTE 34 %; BF MACROPHAGE 12; BF MESOTHELIAL 53 %; BF TOTAL CELLS COUNTED 100
--- NOTE | 2024-07-04 15:25 | HMCIMG ---
US ABDOMINAL PARACENTESIS IR HISTORY: Ascites COMPARISON: None TECHNIQUE: Informed consent was obtained. Risks and benefits were explained to the patient. A timeout was performed. Patient was prepped and draped in a sterile fashion. Local anesthetics was given as required. Under ultrasound guidance, ascites fluid was localized. Paracentesis was performed. FINDINGS: 7 L of yellowish fluid was aspirated. Less than 2 cc blood loss is noted. Patient tolerated procedure without complication. Patient left the department in good condition. IMPRESSION: 1. Uncomplicated ultrasound guidance paracentesis.
== END ==
LOC: RAH 08:24
PROVIDERS: ATTEND Internal Medicine Gastroenterology
DX: R18.8 Other ascites (principal); K74.60 Unspecified cirrhosis of liver; I85.00 Esophageal varices without bleeding; K76.9 Liver disease, unspecified; K80.20 Calculus of gallbladder without cholecystitis without obstruction; I12.0 Hypertensive chronic kidney disease with stage 5 chronic kidney disease or end stage renal disease; E11.22 Type 2 diabetes mellitus with diabetic chronic kidney disease; N18.6 End stage renal disease; R94.6 Abnormal results of thyroid function studies; N40.0 Benign prostatic hyperplasia without lower urinary tract symptoms; R93.3 Abnormal findings on diagnostic imaging of other parts of digestive tract; E66.9 Obesity, unspecified; Z68.30 Body mass index [BMI] 30.0-30.9, adult; Z86.2 Personal history of diseases of the blood and blood-forming organs and certain disorders involving the immune mechanism; Z98.890 Other specified postprocedural states
CPT/HCPCS: 49083; 80053; 85025; 89051; 85610; 85730; 36415; P9046; C1729

== ENCOUNTER → 2024-07-25 | Outpatient (CLI) | payer OTHER ==
[2024-07-25] MEDS: ALBUMIN HUMAN 25% 200 ML IV ONE (10:08)
--- NOTE | 2024-07-25 10:35 | NUR ---
U/S GD PARACENTESIS TOLERATED PROCEDURE. PERFORMED BY DR Dakota SCHAEFFER. 6.3 LITERS OF LIZBET CLOUDY FLUID REMOVED AND SENT TO LAB. ALBUMIN 25% 50 GRAMS GIVEN IV. PUNCTURE SITE TO LLQ. END OF PROCEDURE AT 1015. DRESSING DRY AND INTACT. NO BLEEDING NOTED. DISCHARGE INSTRUCTIONS GIVEN. VERBALIZED UNDERSTANDING. DISCHARGE VIA WHEELCHAIR. DENIES PAIN. A&O.
[2024-07-25 12:18] LABS: BODY FLUID RBC 3275 /cu. mm.; BODY FLUID WBC 315 /cu. mm.
--- NOTE | 2024-07-25 12:27 | HMCIMG ---
US ABDOMINAL PARACENTESIS IR HISTORY: Ascites COMPARISON: None TECHNIQUE: Informed consent was obtained. Risks and benefits were explained to the patient. A timeout was performed. Patient was prepped and draped in a sterile fashion. Local anesthetics was given as required. Under ultrasound guidance, ascites fluid was localized. Paracentesis was performed. FINDINGS: 6.3 L of yellowish fluid was aspirated. Less than 2 cc blood loss is noted. Patient tolerated procedure without complication. Patient left the department in good condition. IMPRESSION: 1. Uncomplicated ultrasound guidance paracentesis.
[2024-07-25 12:53] LABS: BF BASOPHIL 1 %; BF LYMPHOCYTE 6 %; BF MACROPHAGE 17; BF MESOTHELIAL 75 %; BF TOTAL CELLS COUNTED 100
[2024-07-25 12:58] LABS: APPEARANCE BODY FLUID SLIGHTLY CLOUDY (CLEAR); COLOR,BODY FLUID YELLOW (LT YELLOW); SPECIMENTYPE,BODY FLUID ASCITES; TOTAL VOLUME,BODY FLUID 6300 mL
== END ==
LOC: RAH 09:13
PROVIDERS: ATTEND Internal Medicine Gastroenterology
DX: R18.8 Other ascites (principal); K76.9 Liver disease, unspecified; R93.3 Abnormal findings on diagnostic imaging of other parts of digestive tract; I12.0 Hypertensive chronic kidney disease with stage 5 chronic kidney disease or end stage renal disease; E11.22 Type 2 diabetes mellitus with diabetic chronic kidney disease; N18.6 End stage renal disease; I85.00 Esophageal varices without bleeding; N40.0 Benign prostatic hyperplasia without lower urinary tract symptoms; Z99.2 Dependence on renal dialysis; Z86.2 Personal history of diseases of the blood and blood-forming organs and certain disorders involving the immune mechanism; Z79.899 Other long term (current) drug therapy; Z98.890 Other specified postprocedural states
CPT/HCPCS: 49083; 89051; 82105; 36415; P9046; C1729; 96365

== ENCOUNTER → 2024-08-22 | Outpatient (CLI) | payer OTHER ==
[~2024-08-22] MED LIST changes: -ALBUMIN HUMAN 25% 200 ML IV ONE
--- NOTE | 2024-08-22 09:30 | NUR ---
U/S GD PARACENTESIS TOLERATED PROCEDURE. PERFORMED BY DR Joshua PARADA. PUNCTURE SITE TO LLQ. 3.7 LITERS OF LIZBET CLOUDY FLUID REMOVED AND SENT TO LAB. END OF PROCEDURE AT 0910. DRESSING APPLIED. NO BLEEDING NOTED. DISCHARGE INSTRUCTIONS GIVEN. VERBALIZED UNDERSTANDING. DISCHARGE VIA WHEELCHAIR WITH SISTER. DENIES PAIN. A&O.
--- NOTE | 2024-08-22 10:30 | HMCIMG ---
ULTRASOUND GUIDED PARACENTESIS: INDICATION: Ascites TECHNIQUE: Informed consent was obtained. Timeout performed. All elements of maximal sterile barrier technique, including hand hygiene and cutaneous antisepsis were used. Patient was placed supine. Left lower quadrant was prepped and draped in sterile fashion. Local anesthesia was applied. Then, under ultrasound guidance, a 5F centesis needle was advanced through the abdominal wall and into a pocket of fluid in the peritoneum. It yielded 3.7 L of fluid. The catheter was removed and sterile dressing applied. Blood pressure monitoring was performed during the procedure. Complications: None Blood loss: <5 mL. IMPRESSION: Successful ultrasound guided paracentesis.
[2024-08-22 13:26] LABS: ALBUMIN,BODY FLUID 2.4 g/dL; TOTAL PROTEIN,BODY FLUID 4.5 g/dL
[2024-08-22 14:06] LABS: APPEARANCE BODY FLUID CLOUDY (CLEAR); COLOR,BODY FLUID ORANGE (LT YELLOW); SPECIMENTYPE,BODY FLUID ASCITES; TOTAL VOLUME,BODY FLUID 3700 mL
[2024-08-22 14:19] LABS: BODY FLUID RBC 8187 /cu. mm.; BODY FLUID WBC 405 /cu. mm.
[2024-08-22 15:52] LABS: BF LYMPHOCYTE 16 %; BF MACROPHAGE 74; BF MESOTHELIAL 2 %; BF MONOCYTE 1 %; BF OTHER CELLS 2; BF TOTAL CELLS COUNTED 100
== END ==
LOC: RAH 07:50
PROVIDERS: ATTEND Internal Medicine Gastroenterology
DX: R18.8 Other ascites (principal); E11.22 Type 2 diabetes mellitus with diabetic chronic kidney disease; I12.0 Hypertensive chronic kidney disease with stage 5 chronic kidney disease or end stage renal disease; N18.6 End stage renal disease; I85.00 Esophageal varices without bleeding; K76.9 Liver disease, unspecified; K80.20 Calculus of gallbladder without cholecystitis without obstruction; R94.6 Abnormal results of thyroid function studies; N40.0 Benign prostatic hyperplasia without lower urinary tract symptoms; Z99.2 Dependence on renal dialysis; Z86.2 Personal history of diseases of the blood and blood-forming organs and certain disorders involving the immune mechanism; Z98.890 Other specified postprocedural states; Z79.899 Other long term (current) drug therapy; Z79.890 Hormone replacement therapy
CPT/HCPCS: 49083; 84157; 89051; 87071; 87205; 82042; 88108; 88305; C1729

== ENCOUNTER → 2024-09-05 | Outpatient (CLI) | payer OTHER ==
[~2024-09-05] MED LIST changes: +ALBUMIN HUMAN 25% 200 ML IV ONE
--- NOTE | 2024-09-05 09:50 | NUR ---
U/S GD PARACENTESIS TOLERATED PROCEDURE. PERFORMED BY DR Dakota SCHAEFFER. PUNCTURE SITE TO LLQ. 6.0 LITER OF LIZBET CLOUDY ASCITES FLUID REMOVED AND SENT TO LAB. ALBUMIN 25% 50 GRAMS GIVEN IV. END OF PROCEDURE AT 0930. DRESSING DRY AND INTACT. NO BLEEDING NOTED. DISCHARGE INSTRUCTIONS GIVEN. VERBALIZED UNDERSTANDING. DISCHARGE VIA WHEELCHAIR. DENIES PAIN. A&O.
[2024-09-05] MEDS: ALBUMIN HUMAN 25% 200 ML IV ONE (10:48)
--- NOTE | 2024-09-05 11:44 | HMCIMG ---
US ABDOMINAL PARACENTESIS IR HISTORY: Ascites COMPARISON: None TECHNIQUE: Informed consent was obtained. Risks and benefits were explained to the patient. A timeout was performed. Patient was prepped and draped in a sterile fashion. Local anesthetics was given as required. Under ultrasound guidance, ascites fluid was localized. Paracentesis was performed. FINDINGS: 6 L of yellowish fluid was aspirated. Less than 2 cc blood loss is noted. Patient tolerated procedure without complication. Patient left the department in good condition. IMPRESSION: 1. Uncomplicated ultrasound guidance paracentesis.
[2024-09-05 15:52] LABS: ALBUMIN,BODY FLUID 2.2 g/dL; TOTAL PROTEIN,BODY FLUID 4.3 g/dL
[2024-09-05 15:53] LABS: BODY FLUID RBC 5961 /cu. mm.; BODY FLUID WBC 174 /cu. mm.
[2024-09-05 16:38] LABS: APPEARANCE BODY FLUID SLIGHTLY CLOUDY (CLEAR); COLOR,BODY FLUID ORANGE (LT YELLOW); SPECIMENTYPE,BODY FLUID ASCITES; TOTAL VOLUME,BODY FLUID 6000 mL
[2024-09-05 16:49] LABS: BF LYMPHOCYTE 41 %; BF MACROPHAGE 52; BF MONOCYTE 2 %; BF OTHER CELLS 1; BF TOTAL CELLS COUNTED 100
== END | disposition home or self-care (01) ==
LOC: RAH 08:09
PROVIDERS: ATTEND Internal Medicine Gastroenterology
DX: R18.8 Other ascites (principal); E11.22 Type 2 diabetes mellitus with diabetic chronic kidney disease; I12.0 Hypertensive chronic kidney disease with stage 5 chronic kidney disease or end stage renal disease; N18.6 End stage renal disease; I85.00 Esophageal varices without bleeding; K80.20 Calculus of gallbladder without cholecystitis without obstruction; K76.9 Liver disease, unspecified; N40.0 Benign prostatic hyperplasia without lower urinary tract symptoms; R94.6 Abnormal results of thyroid function studies; Z98.890 Other specified postprocedural states; Z99.2 Dependence on renal dialysis; Z79.899 Other long term (current) drug therapy; Z86.2 Personal history of diseases of the blood and blood-forming organs and certain disorders involving the immune mechanism
CPT/HCPCS: 49083; 84157; 89051; 87071; 87205; 82042; 88108; 88305; P9046; C1729; 96365

== ENCOUNTER → 2024-09-19 | Outpatient (CLI) | payer OTHER ==
--- NOTE | 2024-09-19 10:03 | NUR ---
U/S GD PARACENTESIS PROCEDURE PERFORMED BY DR Joshua PARADA. PUNCTURE SITE LLQ AND PATIENT TOLERATED PROCEDURE WELL. TOTAL REMOVED 6 LITERS OF CLOUDY YELLOW FLUID. ALBUMIN 25% 50 GRAMS IV GIVEN DURING PROCEDURE. SPECIMEN SENT TO LAB. END OF PROCEDURE AT 0920. CATHETER REMOVED AND DRESSING APPLIED. NO BLEEDING NOTED. DISCHARGE INSTRUCTIONS GIVEN TO PATIENT AND VERBALIZED UNDERSTANDING. DISCHARGED VIA W/C AT 1000. AAO X3 WITH NO C/O PAIN.
--- NOTE | 2024-09-19 10:20 | HMCIMG ---
ULTRASOUND GUIDED PARACENTESIS: INDICATION: Ascites TECHNIQUE: Informed consent was obtained. Timeout performed. All elements of maximal sterile barrier technique, including hand hygiene and cutaneous antisepsis were used. Patient was placed supine. Left lower quadrant was prepped and draped in sterile fashion. Local anesthesia was applied. Then, under ultrasound guidance, a 5F centesis needle was advanced through the abdominal wall and into a pocket of fluid in the peritoneum. It yielded 6.0 L of fluid. The catheter was removed and sterile dressing applied. Blood pressure monitoring was performed during the procedure. Complications: None Blood loss: <5 mL. IMPRESSION: Successful ultrasound guided paracentesis.
[2024-09-19] MEDS: ALBUMIN HUMAN 25% 200 ML IV ONE (10:32)
[2024-09-19 10:43] LABS: BASOPHILS # (AUTO) 0.07 K/uL (0.00-0.20); BASOPHILS % (AUTO) 1.5 % (0.0-5.0); EOSINOPHILS # (AUTO) 0.29 K/uL (0.00-0.70); EOSINOPHILS % (AUTO) 6.2 % (0.0-8.0); HEMATOCRIT 32.1 % (42-54); IMMATURE GRANULOCYTE ABSOLUTE 0.02 K/uL (0-1); LYMPHOCYTES # (AUTO) 0.6 K/uL (1.0-4.8); LYMPHOCYTES % (AUTO) 12.6 % (21.0-51.0); MEAN CORPUSCULAR HEMOGLOBIN 31.3 pg (27.0-33.0); MEAN CORPUSCULAR VOLUME 94.7 fL (79-99); MONOCYTES # (AUTO) 0.8 K/uL (0.1-1.0); MONOCYTES % (AUTO) 17.1 % (3.0-13.0); NEUTROPHILS # (AUTO) 2.9 K/uL (1.8-7.7); NEUTROPHILS % (AUTO) 62.2 % (40.0-77.0); PLATELET COUNT (AUTO) 126 K/uL (130-400); RED BLOOD CELL COUNT(AUTO) 3.39 MIL/uL (4.50-6.20); RED CELL DISTRIBUTION WIDTH 13.5 % (11.0-15.5); WHITE BLOOD COUNT (AUTO) 4.7 K/uL (4.8-10.8)
[2024-09-19 10:55] LABS: INR 1.14 (0.85-1.15); PROTHROMBIN TIME 11.9 SEC (9.6-11.6)
[2024-09-19 10:56] LABS: PARTIAL THROMBOPLASTIN TIME 34.5 SEC (26.3-35.5)
[2024-09-19 10:59] LABS: ALBUMIN 3.5 g/dL (3.5-5.0); BILIRUBIN,TOTAL 1.3 mg/dL (0.2-1.0); CREATININE 5.1 mg/dL (0.5-1.3); POTASSIUM 4.5 mmol/L (3.5-5.1); TOTAL PROTEIN, SERUM 7.6 g/dL (6.0-8.3)
[2024-09-19 14:02] LABS: APPEARANCE BODY FLUID CLOUDY (CLEAR); COLOR,BODY FLUID ORANGE (LT YELLOW); SPECIMENTYPE,BODY FLUID ASCITES; TOTAL VOLUME,BODY FLUID 6000 mL
[2024-09-19 14:08] LABS: BF BASOPHIL 1 %; BF LYMPHOCYTE 45 %; BF MACROPHAGE 6; BF MESOTHELIAL 40 %; BF MONOCYTE 7 %; BF TOTAL CELLS COUNTED 100
[2024-09-19 14:10] LABS: BODY FLUID RBC 3210 /cu. mm.; BODY FLUID WBC 183 /cu. mm.
== END | disposition home or self-care (01) ==
LOC: RAH 08:10
PROVIDERS: ATTEND Internal Medicine Gastroenterology
DX: R18.8 Other ascites (principal); K76.9 Liver disease, unspecified; I85.10 Secondary esophageal varices without bleeding; K80.20 Calculus of gallbladder without cholecystitis without obstruction; I12.0 Hypertensive chronic kidney disease with stage 5 chronic kidney disease or end stage renal disease; N18.6 End stage renal disease; R94.6 Abnormal results of thyroid function studies; N40.0 Benign prostatic hyperplasia without lower urinary tract symptoms; E11.22 Type 2 diabetes mellitus with diabetic chronic kidney disease; D63.1 Anemia in chronic kidney disease; Z99.2 Dependence on renal dialysis; Z79.899 Other long term (current) drug therapy
CPT/HCPCS: 49083; 80053; 85025; 89051; 85610; 85730; 36415; P9046; C1729; 96365

== ENCOUNTER → 2024-10-03 | Outpatient (CLI) | payer OTHER ==
[~2024-10-03] MED LIST changes: -ALBUMIN HUMAN 25% 200 ML IV ONE
--- NOTE | 2024-10-03 10:45 | NUR ---
U/S GUIDED PARACENTESIS PERFORMED BY DR. Chandelr SCHAEFFER AND PATIENT TOLERATED PROCEDURE WELL. PUNCTURE SITE TO LLQ. 3.8 LITERS OF LIZBET, CLOUDY ASCITES FLUID REMOVED AND SENT TO LAB. END OF PROCEDURE AT 1030. DRESSING APPLIED- DRY AND INTACT WITH NO BLEEDING NOTED. DISCHARGE INSTRUCTIONS GIVEN AND PATIENT VERBALIZED UNDERSTANDING. DISCHARGED VIA WHEELCHAIR WITH NO C/O PAIN.
--- NOTE | 2024-10-03 12:07 | HMCIMG ---
US ABDOMINAL PARACENTESIS IR HISTORY: Ascites COMPARISON: None TECHNIQUE: Informed consent was obtained. Risks and benefits were explained to the patient. A timeout was performed. Patient was prepped and draped in a sterile fashion. Local anesthetics was given as required. Under ultrasound guidance, ascites fluid was localized. Paracentesis was performed. FINDINGS: 3.8 L of yellowish fluid was aspirated. Less than 2 cc blood loss is noted. Patient tolerated procedure without complication. Patient left the department in good condition. IMPRESSION: 1. Uncomplicated ultrasound guidance paracentesis.
[2024-10-03 14:04] LABS: APPEARANCE BODY FLUID CLOUDY (CLEAR); COLOR,BODY FLUID ORANGE (LT YELLOW); SPECIMENTYPE,BODY FLUID ASCITES; TOTAL VOLUME,BODY FLUID 3800 mL
[2024-10-03 14:15] LABS: BODY FLUID RBC 4435 /cu. mm.; BODY FLUID WBC 410 /cu. mm.
[2024-10-03 15:00] LABS: BF LYMPHOCYTE 10 %; BF MESOTHELIAL 50 %
[2024-10-03 15:01] LABS: BF MACROPHAGE 25; BF MONOCYTE 10 %
== END | disposition home or self-care (01) ==
LOC: RAH 08:58
PROVIDERS: ATTEND Internal Medicine Gastroenterology
DX: R18.8 Other ascites (principal); K76.9 Liver disease, unspecified; I85.10 Secondary esophageal varices without bleeding; K80.20 Calculus of gallbladder without cholecystitis without obstruction; N40.0 Benign prostatic hyperplasia without lower urinary tract symptoms; R94.6 Abnormal results of thyroid function studies; I12.0 Hypertensive chronic kidney disease with stage 5 chronic kidney disease or end stage renal disease; E11.22 Type 2 diabetes mellitus with diabetic chronic kidney disease; D63.1 Anemia in chronic kidney disease; N18.6 End stage renal disease; Z99.2 Dependence on renal dialysis; Z98.890 Other specified postprocedural states; Z79.899 Other long term (current) drug therapy
CPT/HCPCS: 49083; 89051; C1729

== ENCOUNTER → 2024-10-15 | Outpatient (CLI) | payer OTHER ==
--- NOTE | 2024-10-15 10:20 | NUR ---
U/S GD PARACENTESIS PROCEDURE PERFORMED BY DR FONTAINE. PUNCTURE SITE LLQ AND PATIENT TOLERATED PROCEDURE WELL. TOTAL REMOVED 4.5 LITERS OF YELLOW CLOUDY ASCITES FLUID. UNABLE TO OBTAIN IV ACCESS PT DID NOT WANT 2ND IV ATTEMPT. SPECIMEN SENT TO LAB. END OF PROCEDURE AT 1000. CATHETER REMOVED AND DRESSING APPLIED. NO BLEEDING NOTED. DISCHARGE INSTRUCTIONS GIVEN TO PATIENT AND VERBALIZED UNDERSTANDING. DISCHARGED VIA WHEELCHAIR. AAO X3 WITH NO C/O PAIN.
--- NOTE | 2024-10-15 15:10 | HMCIMG ---
US ABDOMINAL PARACENTESIS IR REASON: ASCITES TECHNIQUE: Paracentesis was performed with ultrasound guidance. The puncture site was selected in the Right lower quadrant and overlying skin prepped and draped in a sterile fashion. 1% Xylocaine infiltration was performed. Catheter was placed in the fluid using trocar technique. 2.32 were removed. Fluid sample was submitted for laboratory evaluation. The patient showed no evidence of complication during the procedure. Patient tolerated procedure well. IMPRESSION: 1. Ultrasound-guided paracentesis.
[2024-10-15 16:35] LABS: BODY FLUID RBC 5022 /cu. mm.; BODY FLUID WBC 120 /cu. mm.
[2024-10-15 16:53] LABS: APPEARANCE BODY FLUID SLIGHTLY CLOUDY (CLEAR); COLOR,BODY FLUID YELLOW (LT YELLOW); SPECIMENTYPE,BODY FLUID ASCITES; TOTAL VOLUME,BODY FLUID 4500 mL
[2024-10-15 17:13] LABS: BF EOSINOPHIL 1 %; BF LYMPHOCYTE 70 %; BF MACROPHAGE 3; BF MESOTHELIAL 2 %; BF MONOCYTE 20 %; BF NEUTROPHIL 4.0 %; BF TOTAL CELLS COUNTED 100
== END | disposition home or self-care (01) ==
LOC: RAH 08:37
PROVIDERS: ATTEND Internal Medicine Gastroenterology
DX: R18.8 Other ascites (principal); K76.9 Liver disease, unspecified; I85.10 Secondary esophageal varices without bleeding; R94.6 Abnormal results of thyroid function studies; N40.0 Benign prostatic hyperplasia without lower urinary tract symptoms; I12.0 Hypertensive chronic kidney disease with stage 5 chronic kidney disease or end stage renal disease; D63.1 Anemia in chronic kidney disease; E11.22 Type 2 diabetes mellitus with diabetic chronic kidney disease; N18.6 End stage renal disease; Z99.2 Dependence on renal dialysis; Z98.890 Other specified postprocedural states; Z79.899 Other long term (current) drug therapy
CPT/HCPCS: 49083; 89051; C1729

== ENCOUNTER → 2024-10-29 | Outpatient (CLI) | payer OTHER ==
--- NOTE | 2024-10-29 09:55 | NUR ---
U/S GD PARACENTESIS PROCEDURE PERFORMED BY DR FONTAINE. PUNCTURE SITE LLQ AND PATIENT TOLERATED PROCEDURE WELL. TOTAL REMOVED 5.0 LITERS OF YELLOW CLOUDY ASCITES FLUID. ALBUMIN 25% 50 GRAMS IV GIVEN DURING PROCEDURE. SPECIMEN SENT TO LAB. END OF PROCEDURE AT 0935. CATHETER REMOVED AND DRESSING APPLIED. NO BLEEDING NOTED. DISCHARGE INSTRUCTIONS GIVEN TO PATIENT AND VERBALIZED UNDERSTANDING. DISCHARGED VIA WHEELCHAIR. AAO X3 WITH NO C/O PAIN.
[2024-10-29] MEDS: ALBUMIN HUMAN 25% 200 ML IV ONE (10:20)
[2024-10-29 10:29] LABS: IMMATURE GRANULOCYTE ABSOLUTE 0.02 K/uL (0-1); NUCLEATED RED BLOOD CELLS 0.0 % (0.0-0.19); PLATELET COUNT (AUTO) 112 K/uL (130-400); RED BLOOD CELL COUNT(AUTO) 3.81 MIL/uL (4.50-6.20); RED CELL DISTRIBUTION WIDTH 14.2 % (11.0-15.5); WHITE BLOOD COUNT (AUTO) 4.8 K/uL (4.8-10.8)
[2024-10-29 10:35] LABS: INR 1.13 (0.85-1.15)
[2024-10-29 10:39] LABS: ASPARTATE AMINOTRANSFERASE 19.0 U/L (10-37); CREATININE 5.7 mg/dL (0.5-1.3); GLOMERULAR FILTR. RATE CALC 12.0 mL/min (>90); GLUCOSE,RANDOM 109.0 mg/dL (70-105); SODIUM SERUM 138.0 mmol/L (136-145); TOTAL PROTEIN, SERUM 7.6 g/dL (6.0-8.3); UREA NITROGEN, BLOOD 30.0 mg/dL (7-18)
[2024-10-29 12:30] LABS: APPEARANCE BODY FLUID SLIGHTLY CLOUDY (CLEAR); COLOR,BODY FLUID ORANGE (LT YELLOW); SPECIMENTYPE,BODY FLUID ASCITES; TOTAL VOLUME,BODY FLUID 5000 mL
[2024-10-29 13:15] LABS: BODY FLUID WBC 234 /cu. mm.
[2024-10-29 13:16] LABS: BODY FLUID RBC 3767 /cu. mm.
[2024-10-29 14:15] LABS: BF LYMPHOCYTE 29 %; BF MACROPHAGE 11; BF MESOTHELIAL 55 %; BF MONOCYTE 4 %; BF NEUTROPHIL 1.0 %; BF TOTAL CELLS COUNTED 100
--- NOTE | 2024-10-29 14:25 | HMCIMG ---
US ABDOMINAL PARACENTESIS IR REASON: ASCITES TECHNIQUE: Paracentesis was performed with ultrasound guidance. The puncture site was selected in the left lower quadrant and overlying skin prepped and draped in a sterile fashion. 1% Xylocaine infiltration was performed. Catheter was placed in the fluid using trocar technique. 5 L were removed. Fluid sample was submitted for laboratory evaluation. The patient showed no evidence of complication during the procedure. Patient tolerated procedure well. Procedure was performed with , PGY2 IMPRESSION: 1. Ultrasound-guided paracentesis.
== END | disposition home or self-care (01) ==
LOC: RAH 08:12
PROVIDERS: ATTEND Internal Medicine Gastroenterology
DX: R18.8 Other ascites (principal); K76.9 Liver disease, unspecified; I85.10 Secondary esophageal varices without bleeding; D63.1 Anemia in chronic kidney disease; K80.20 Calculus of gallbladder without cholecystitis without obstruction; R94.6 Abnormal results of thyroid function studies; I12.0 Hypertensive chronic kidney disease with stage 5 chronic kidney disease or end stage renal disease; E11.22 Type 2 diabetes mellitus with diabetic chronic kidney disease; N18.6 End stage renal disease; Z99.2 Dependence on renal dialysis; Z79.899 Other long term (current) drug therapy
CPT/HCPCS: 49083; 80053; 85025; 89051; 85610; 85730; 36415; P9046; C1729; 96365

== ENCOUNTER → 2024-11-12 | Outpatient (CLI) | payer OTHER ==
--- NOTE | 2024-11-12 09:30 | NUR ---
U/S GD PARACENTESIS PROCEDURE PERFORMED BY DR FONTAINE. PUNCTURE SITE LLQ AND PATIENT TOLERATED PROCEDURE WELL. TOTAL REMOVED 4.5 LITERS OF LIZBET CLOUDY ASCITES FLUID. ALBUMIN 25% 50 GRAMS IV GIVEN DURING PROCEDURE. SPECIMEN SENT TO LAB. END OF PROCEDURE AT 0910. CATHETER REMOVED AND DRESSING APPLIED. NO BLEEDING NOTED. DISCHARGE INSTRUCTIONS GIVEN TO PATIENT AND VERBALIZED UNDERSTANDING. DISCHARGED VIA WHEELCHAIR. AAO X3 WITH NO C/O PAIN.
[2024-11-12] MEDS: ALBUMIN HUMAN 25% 200 ML IV ONE (09:59)
--- NOTE | 2024-11-12 12:10 | HMCIMG ---
US ABDOMINAL PARACENTESIS IR REASON: ASCITES TECHNIQUE: Paracentesis was performed with ultrasound guidance. The puncture site was selected in the Right lower quadrant and overlying skin prepped and draped in a sterile fashion. 1% Xylocaine infiltration was performed. Catheter was placed in the fluid using trocar technique. 4.5 L were removed. Fluid sample was submitted for laboratory evaluation. The patient showed no evidence of complication during the procedure. Patient tolerated procedure well. IMPRESSION: 1. Ultrasound-guided paracentesis.
[2024-11-12 14:07] LABS: COLOR,BODY FLUID YELLOW (LT YELLOW); SPECIMENTYPE,BODY FLUID ASCITES
[2024-11-12 14:08] LABS: APPEARANCE BODY FLUID SLIGHTLY CLOUDY (CLEAR); BODY FLUID WBC 497 /cu. mm.; TOTAL VOLUME,BODY FLUID 4500 mL
[2024-11-12 14:09] LABS: BODY FLUID RBC 3174 /cu. mm.
[2024-11-12 15:39] LABS: BF LYMPHOCYTE 13 %; BF MACROPHAGE 45; BF MESOTHELIAL 32 %; BF NEUTROPHIL 7.0 %; BF OTHER CELLS 3; BF TOTAL CELLS COUNTED 100
== END | disposition home or self-care (01) ==
LOC: RAH 08:24
PROVIDERS: ATTEND Internal Medicine Gastroenterology
DX: R18.8 Other ascites (principal); I12.0 Hypertensive chronic kidney disease with stage 5 chronic kidney disease or end stage renal disease; E11.22 Type 2 diabetes mellitus with diabetic chronic kidney disease; N18.6 End stage renal disease; K76.9 Liver disease, unspecified; I85.10 Secondary esophageal varices without bleeding; D63.1 Anemia in chronic kidney disease; K80.20 Calculus of gallbladder without cholecystitis without obstruction; N40.0 Benign prostatic hyperplasia without lower urinary tract symptoms; R94.6 Abnormal results of thyroid function studies; Z99.2 Dependence on renal dialysis; Z98.890 Other specified postprocedural states; Z79.899 Other long term (current) drug therapy
CPT/HCPCS: 49083; 89051; P9046; C1729; 96365

== ENCOUNTER → 2024-12-10 | Outpatient (CLI) | payer OTHER ==
[~2024-12-10] MED LIST changes: +LIDOCAINE HCL 1% 20 ML VIAL MISC ONE
--- NOTE | 2024-12-10 09:20 | NUR ---
ULTRASOUND GUIDED PARACENTESIS PROCEDURE PERFORMED BY DR. SWETHA FONTAINE. PUNCTURE SITE RLQ AND PATIENT TOLERATED PROCEDURE WELL. TOTAL REMOVED 6.0 LITERS OF CLEAR, YELLOW FLUID. ALBUMIN 25% 50 GRAMS IV GIVEN DURING PROCEDURE. SPECIMEN SENT TO LAB. END OF PROCEDURE AT 0900. CATHETER REMOVED AND DRESSING APPLIED- NO BLEEDING NOTED. DISCHARGE INSTRUCTIONS GIVEN TO PATIENT AND VERBALIZED UNDERSTANDING. DISCHARGED VIA WHEELCHAIR. PATIENT IS ALERT WITH NO C/O PAIN.
[2024-12-10 09:40] LABS: IMMATURE GRANULOCYTE ABSOLUTE 0.03 K/uL (0-1); NUCLEATED RED BLOOD CELLS 0.0 % (0.0-0.19); PLATELET COUNT (AUTO) 108 K/uL (130-400); RED BLOOD CELL COUNT(AUTO) 3.75 MIL/uL (4.50-6.20); RED CELL DISTRIBUTION WIDTH 13.7 % (11.0-15.5); WHITE BLOOD COUNT (AUTO) 5.0 K/uL (4.8-10.8)
[2024-12-10 09:54] LABS: ASPARTATE AMINOTRANSFERASE 19.0 U/L (10-37); CREATININE 5.8 mg/dL (0.5-1.3); GLOMERULAR FILTR. RATE CALC 12.0 mL/min (>90); GLUCOSE,RANDOM 124.0 mg/dL (70-105); SODIUM SERUM 135.0 mmol/L (136-145); TOTAL PROTEIN, SERUM 7.4 g/dL (6.0-8.3); UREA NITROGEN, BLOOD 24.0 mg/dL (7-18)
[2024-12-10 10:19] LABS: INR 1.13 (0.85-1.15)
[2024-12-10] MEDS: ALBUMIN HUMAN 25% 200 ML IV ONE (10:24)
--- NOTE | 2024-12-10 11:08 | HMCIMG ---
US ABDOMINAL PARACENTESIS IR REASON: ASCITES TECHNIQUE: Paracentesis was performed with ultrasound guidance. The puncture site was selected in the Right lower quadrant and overlying skin prepped and draped in a sterile fashion. 1% Xylocaine infiltration was performed. Catheter was placed in the fluid using trocar technique. 6 L were removed. Fluid sample was submitted for laboratory evaluation. The patient showed no evidence of complication during the procedure. Patient tolerated procedure well. IMPRESSION: 1. Ultrasound-guided paracentesis.
[2024-12-10 18:28] LABS: BODY FLUID RBC 1760 /cu. mm.; BODY FLUID WBC 246 /cu. mm.
[2024-12-10 19:20] LABS: APPEARANCE BODY FLUID CLOUDY (CLEAR); COLOR,BODY FLUID YELLOW (LT YELLOW); SPECIMENTYPE,BODY FLUID ASCITES; TOTAL VOLUME,BODY FLUID 6000 mL
[2024-12-10 19:24] LABS: BF LYMPHOCYTE 67 %; BF MESOTHELIAL 18 %; BF NEUTROPHIL 15.0 %; BF TOTAL CELLS COUNTED 100
== END | disposition home or self-care (01) ==
LOC: RAH 08:05
PROVIDERS: ATTEND Internal Medicine Gastroenterology
DX: R18.8 Other ascites (principal); I12.0 Hypertensive chronic kidney disease with stage 5 chronic kidney disease or end stage renal disease; E11.22 Type 2 diabetes mellitus with diabetic chronic kidney disease; N18.6 End stage renal disease; K76.9 Liver disease, unspecified; I85.10 Secondary esophageal varices without bleeding; D63.1 Anemia in chronic kidney disease; K80.20 Calculus of gallbladder without cholecystitis without obstruction; N40.0 Benign prostatic hyperplasia without lower urinary tract symptoms; R94.6 Abnormal results of thyroid function studies; Z99.2 Dependence on renal dialysis; Z79.01 Long term (current) use of anticoagulants; Z79.899 Other long term (current) drug therapy
CPT/HCPCS: 49083; 80053; 85025; 89051; 85610; 85730; 36415; P9046; C1729

== ENCOUNTER → 2024-12-24 | Outpatient (CLI) | payer OTHER ==
[~2024-12-24] MED LIST changes: +ALBUMIN HUMAN 25% 200 ML IV ONE; -LIDOCAINE HCL 1% 20 ML VIAL MISC ONE
--- NOTE | 2024-12-24 09:55 | NUR ---
ULTRASOUND GUIDED PARACENTESIS PROCEDURE PERFORMED BY DR. SWETHA FONTAINE. PUNCTURE SITE RLQ AND PATIENT TOLERATED PROCEDURE WELL. TOTAL REMOVED 6.2 LITERS OF CLEAR, YELLOW ASCITES FLUID. ALBUMIN 25% 50 GRAMS IV GIVEN DURING PROCEDURE. SPECIMEN SENT TO LAB. END OF PROCEDURE AT 09. CATHETER REMOVED AND DRESSING APPLIED- NO BLEEDING NOTED. DISCHARGE INSTRUCTIONS GIVEN TO PATIENT AND VERBALIZED UNDERSTANDING. PATIENT DISCHARGED AMBULATORY IN STABLE CONDITION WITH NO C/O PAIN. Addendum: 12/31/24 at 1536 by MASSIMO DOWNEY RN RN ADDENDUM FOR ALBUMIN INFUSION ALBUMIN START TIME 924 AND END TIME 939.
--- NOTE | 2024-12-24 15:32 | HMCIMG ---
US ABDOMINAL PARACENTESIS IR REASON: ASCITES TECHNIQUE: This procedure was done by Dr Chris Poole and Dr Sebastián Burleson Paracentesis was performed with ultrasound guidance. The puncture site was selected in the Right lower quadrant and overlying skin prepped and draped in a sterile fashion. 1% Xylocaine infiltration was performed. Catheter was placed in the fluid using trocar technique. 6.2 L were removed. Fluid sample was submitted for laboratory evaluation. The patient showed no evidence of complication during the procedure. Patient tolerated the procedure well. IMPRESSION: 1. Ultrasound-guided paracentesis. 2 . 6.2 L were removed.
[2024-12-24 15:36] LABS: SPECIMENTYPE,BODY FLUID ASCITES
[2024-12-24 15:37] LABS: APPEARANCE BODY FLUID SLIGHTLY CLOUDY (CLEAR); COLOR,BODY FLUID YELLOW (LT YELLOW); TOTAL VOLUME,BODY FLUID 6200 mL
[2024-12-24 15:46] LABS: BODY FLUID RBC 1979 /cu. mm.; BODY FLUID WBC 356 /cu. mm.
[2024-12-24 16:09] LABS: BF EOSINOPHIL 1 %; BF LYMPHOCYTE 73 %; BF MESOTHELIAL 19 %; BF MONOCYTE 2 %; BF NEUTROPHIL 5.0 %; BF TOTAL CELLS COUNTED 100
[2024-12-24 16:14] LABS: ALBUMIN,BODY FLUID 2.1 g/dL; TOTAL PROTEIN,BODY FLUID 3.9 g/dL
== END | disposition home or self-care (01) ==
LOC: RAH 08:31
PROVIDERS: ATTEND Internal Medicine Gastroenterology
DX: R18.8 Other ascites (principal); I12.0 Hypertensive chronic kidney disease with stage 5 chronic kidney disease or end stage renal disease; E11.22 Type 2 diabetes mellitus with diabetic chronic kidney disease; K76.9 Liver disease, unspecified; I85.10 Secondary esophageal varices without bleeding; D63.1 Anemia in chronic kidney disease; K80.20 Calculus of gallbladder without cholecystitis without obstruction; N40.0 Benign prostatic hyperplasia without lower urinary tract symptoms; R94.6 Abnormal results of thyroid function studies; Z98.890 Other specified postprocedural states; Z99.2 Dependence on renal dialysis; Z79.899 Other long term (current) drug therapy
CPT/HCPCS: 49083; 84157; 89051; 87071; 87205; 82042; 88108; 88305; P9046; C1729

== ENCOUNTER → 2025-01-21 | Outpatient (CLI) | payer OTHER ==
[~2025-01-21] MED LIST changes: -ALBUMIN HUMAN 25% 200 ML IV ONE
[2025-01-21 09:26] LABS: IMMATURE GRANULOCYTE ABSOLUTE 0.02 K/uL (0-1); NUCLEATED RED BLOOD CELLS 0.0 % (0.0-0.19); PLATELET COUNT (AUTO) 118 K/uL (130-400); RED BLOOD CELL COUNT(AUTO) 3.56 MIL/uL (4.50-6.20); RED CELL DISTRIBUTION WIDTH 14.6 % (11.0-15.5); WHITE BLOOD COUNT (AUTO) 5.1 K/uL (4.8-10.8)
[2025-01-21 09:40] LABS: ASPARTATE AMINOTRANSFERASE 21.0 U/L (10-37); CREATININE 5.6 mg/dL (0.5-1.3); GLOMERULAR FILTR. RATE CALC 13.0 mL/min (>90); GLUCOSE,RANDOM 97.0 mg/dL (70-105); SODIUM SERUM 138.0 mmol/L (136-145); TOTAL PROTEIN, SERUM 7.5 g/dL (6.0-8.3); UREA NITROGEN, BLOOD 22.0 mg/dL (7-18)
[2025-01-21] MEDS: ALBUMIN HUMAN 25% 200 ML IV ONE (09:50)
--- NOTE | 2025-01-21 10:00 | NUR ---
U/S GD PARACENTESIS PROCEDURE PERFORMED BY DR Shobha FONTAINE. PUNCTURE SITE LLQ AND PATIENT TOLERATED PROCEDURE WELL. TOTAL REMOVED 7.5 LITERS OF CLOUDY YELLOW FLUID. ALBUMIN 25% 50 GRAMS IV GIVEN DURING PROCEDURE. SPECIMEN SENT TO LAB. END OF PROCEDURE AT 0845. CATHETER REMOVED AND DRESSING APPLIED. NO BLEEDING NOTED. DISCHARGE INSTRUCTIONS GIVEN TO PATIENT AND VERBALIZED UNDERSTANDING. DISCHARGED VIA W/C AT 1000. AAO X3 WITH NO C/O PAIN.
[2025-01-21 10:07] LABS: INR 1.12 (0.85-1.15)
[2025-01-21 13:05] LABS: BODY FLUID RBC 3803 /cu. mm.; BODY FLUID WBC 450 /cu. mm.
[2025-01-21 13:08] LABS: APPEARANCE BODY FLUID CLOUDY (CLEAR); COLOR,BODY FLUID ORANGE (LT YELLOW); SPECIMENTYPE,BODY FLUID ASCITES; TOTAL VOLUME,BODY FLUID 7500 mL
[2025-01-21 13:12] LABS: BF LYMPHOCYTE 27 %; BF MACROPHAGE 17; BF MESOTHELIAL 51 %; BF MONOCYTE 4 %; BF NEUTROPHIL 1.0 %; BF TOTAL CELLS COUNTED 100
--- NOTE | 2025-01-21 14:46 | HMCIMG ---
US ABDOMINAL PARACENTESIS IR REASON: ASCITES TECHNIQUE: Paracentesis was performed with ultrasound guidance. The puncture site was selected in the Left lower quadrant and overlying skin prepped and draped in a sterile fashion. 1% Xylocaine infiltration was performed. Catheter was placed in the fluid using trocar technique. 7.5 L were removed. Fluid sample was submitted for laboratory evaluation. The patient showed no evidence of complication during the procedure. Patient tolerated procedure well. IMPRESSION: 1. Ultrasound-guided paracentesis.
== END | disposition home or self-care (01) ==
LOC: RAH 08:03
PROVIDERS: ATTEND Internal Medicine Gastroenterology
DX: R18.8 Other ascites (principal); I85.00 Esophageal varices without bleeding; I12.0 Hypertensive chronic kidney disease with stage 5 chronic kidney disease or end stage renal disease; E11.22 Type 2 diabetes mellitus with diabetic chronic kidney disease; N18.6 End stage renal disease; N40.0 Benign prostatic hyperplasia without lower urinary tract symptoms; Z99.2 Dependence on renal dialysis; Z86.2 Personal history of diseases of the blood and blood-forming organs and certain disorders involving the immune mechanism; Z79.899 Other long term (current) drug therapy; Z79.890 Hormone replacement therapy; Z98.890 Other specified postprocedural states
CPT/HCPCS: 49083; 80053; 85025; 89051; 85610; 85730; 36415; P9046; C1729; 77012

== ENCOUNTER → 2025-02-04 | Outpatient (CLI) | payer OTHER ==
--- NOTE | 2025-02-04 09:30 | HMCIMG ---
US ABDOMINAL PARACENTESIS IR REASON: ASCITES This procedure was preformed by Dr. Dang Buck MD PGY2 with Dr. Burleson. TECHNIQUE: Paracentesis was performed with ultrasound guidance. The puncture site was selected in the Right lower quadrant and overlying skin prepped and draped in a sterile fashion. 1% Xylocaine infiltration was performed. Catheter was placed in the fluid using trocar technique. 4.5 L were removed. Fluid sample was submitted for laboratory evaluation. The patient showed no evidence of complication during the procedure. The patient tolerated the procedure well. IMPRESSION: 1. Ultrasound-guided paracentesis.
--- NOTE | 2025-02-04 09:45 | NUR ---
U/S GD PARACENTESIS PROCEDURE PERFORMED BY DR Shobha HUFF. PUNCTURE SITE RLQ AND PATIENT TOLERATED PROCEDURE WELL. TOTAL REMOVED 4.5 LITERS OF CLOUDY YELLOW FLUID. SPECIMEN SENT TO LAB. END OF PROCEDURE AT 09. CATHETER REMOVED AND DRESSING APPLIED. NO BLEEDING NOTED. DISCHARGE INSTRUCTIONS GIVEN TO PATIENT AND VERBALIZED UNDERSTANDING. DISCHARGED VIA W/C AT 0945. AAO X3 WITH NO C/O PAIN.
[2025-02-04 13:45] LABS: APPEARANCE BODY FLUID SLIGHTLY CLOUDY (CLEAR); COLOR,BODY FLUID YELLOW (LT YELLOW); SPECIMENTYPE,BODY FLUID ASCITES; TOTAL VOLUME,BODY FLUID 4500 mL
[2025-02-04 14:42] LABS: BODY FLUID RBC 1970 /cu. mm.; BODY FLUID WBC 769 /cu. mm.
[2025-02-04 15:56] LABS: BF BASOPHIL 1 %; BF LYMPHOCYTE 28 %; BF MACROPHAGE 24; BF MESOTHELIAL 39 %; BF MONOCYTE 6 %; BF NEUTROPHIL 2.0 %; BF TOTAL CELLS COUNTED 100
== END | disposition home or self-care (01) ==
LOC: RAH 08:10
PROVIDERS: ATTEND Internal Medicine Gastroenterology
DX: R18.8 Other ascites (principal); K76.9 Liver disease, unspecified; D63.1 Anemia in chronic kidney disease; K82.9 Disease of gallbladder, unspecified; N40.0 Benign prostatic hyperplasia without lower urinary tract symptoms; R94.6 Abnormal results of thyroid function studies; E83.51 Hypocalcemia; I85.10 Secondary esophageal varices without bleeding; I12.0 Hypertensive chronic kidney disease with stage 5 chronic kidney disease or end stage renal disease; E11.22 Type 2 diabetes mellitus with diabetic chronic kidney disease; N18.6 End stage renal disease; Z99.2 Dependence on renal dialysis; Z98.890 Other specified postprocedural states; Z79.899 Other long term (current) drug therapy
CPT/HCPCS: 49083; 89051; C1729

== ENCOUNTER → 2025-02-14 | Outpatient (CLI) | payer OTHER ==
--- NOTE | 2025-02-14 09:30 | NUR ---
U/S GD PARACENTESIS PROCEDURE PERFORMED BY DR Shobha FONTAINE. PUNCTURE SITE RLQ AND PATIENT TOLERATED PROCEDURE WELL. TOTAL REMOVED 5.2 LITERS OF CLOUDY YELLOW FLUID. ALBUMIN 25% 50 GRAMS IV GIVEN DURING PROCEDURE. SPECIMEN SENT TO LAB. END OF PROCEDURE AT 0900. CATHETER REMOVED AND DRESSING APPLIED. NO BLEEDING NOTED. DISCHARGE INSTRUCTIONS GIVEN TO PATIENT AND VERBALIZED UNDERSTANDING. DISCHARGED VIA W/C AT 0930. AAO X3 WITH NO C/O PAIN.
[2025-02-14 12:31] LABS: APPEARANCE BODY FLUID SLIGHTLY CLOUDY (CLEAR); COLOR,BODY FLUID ORANGE (LT YELLOW); SPECIMENTYPE,BODY FLUID ASCITES
[2025-02-14 12:32] LABS: TOTAL VOLUME,BODY FLUID 5200 mL
--- NOTE | 2025-02-14 13:08 | HMCIMG ---
US ABDOMINAL PARACENTESIS IR REASON: ASCITES This procedure was done by Dr. Divya Lopez MD PGY2 with Dr. Burleson TECHNIQUE: Paracentesis was performed with ultrasound guidance. The puncture site was selected in the Right lower quadrant and overlying skin prepped and draped in a sterile fashion. 1% Xylocaine infiltration was performed. Catheter was placed in the fluid using trocar technique. 5.2 L were removed. Fluid sample was submitted for laboratory evaluation. The patient showed no evidence of complication during the procedure. The patient tolerated the procedure well. IMPRESSION: 1. Ultrasound-guided paracentesis.
[2025-02-14 13:19] LABS: BODY FLUID RBC 3889 /cu. mm.; BODY FLUID WBC 441 /cu. mm.
[2025-02-14 14:06] LABS: BF BASOPHIL 2 %; BF LYMPHOCYTE 30 %; BF MACROPHAGE 17; BF MESOTHELIAL 46 %; BF MONOCYTE 4 %; BF NEUTROPHIL 1.0 %; BF TOTAL CELLS COUNTED 100
[2025-02-14] MEDS: ALBUMIN HUMAN 25% 200 ML IV ONE (17:11)
== END ==
LOC: RAH 07:40
PROVIDERS: ATTEND Internal Medicine Gastroenterology
DX: R18.8 Other ascites (principal)
CPT/HCPCS: 49083; 89051; P9046; C1729

== ENCOUNTER → 2025-02-20 | Outpatient (CLI) | payer OTHER ==
--- NOTE | 2025-02-20 11:05 | NUR ---
U/S GD PARACENTESIS PROCEDURE PERFORMED BY DR FONTAINE. PUNCTURE SITE LLQ AND PATIENT TOLERATED PROCEDURE WELL. TOTAL REMOVED 5.5 LITERS OF LIZBET ASCITES FLUID. ALBUMIN 25% 50 GRAMS IV GIVEN DURING PROCEDURE. SPECIMEN SENT TO LAB. END OF PROCEDURE AT 1030. CATHETER REMOVED AND DRESSING APPLIED. NO BLEEDING NOTED. DISCHARGE INSTRUCTIONS GIVEN TO PATIENT AND VERBALIZED UNDERSTANDING. DISCHARGED VIA WHEELCHAIR. AAO X3 WITH NO C/O PAIN.
--- NOTE | 2025-02-20 11:38 | HMCIMG ---
US ABDOMINAL PARACENTESIS IR REASON: ASCITES Procedure performed by Dr. Divya Lopez M.D. PGY [address] Burleson TECHNIQUE: Paracentesis was performed with ultrasound guidance. The puncture site was selected in the Left lower quadrant and overlying skin prepped and draped in a sterile fashion. 1% Xylocaine infiltration was performed. Catheter was placed in the fluid using trocar technique. 5.5 L were removed. Fluid sample was submitted for laboratory evaluation. The patient showed no evidence of complication during the procedure. Albumin was given. Patient tolerated procedure well. IMPRESSION: 1. Ultrasound-guided paracentesis.
[2025-02-20 13:54] LABS: APPEARANCE BODY FLUID SLIGHTLY CLOUDY (CLEAR); COLOR,BODY FLUID ORANGE (LT YELLOW); SPECIMENTYPE,BODY FLUID ASCITES; TOTAL VOLUME,BODY FLUID 5500 mL
[2025-02-20 14:01] LABS: BODY FLUID RBC 1814 /cu. mm.; BODY FLUID WBC 380 /cu. mm.
[2025-02-20] MEDS: ALBUMIN HUMAN 25% 200 ML IV ONE (14:24)
[2025-02-20 16:26] LABS: BF LYMPHOCYTE 19 %; BF MACROPHAGE 78; BF NEUTROPHIL 2.0 %; BF OTHER CELLS 1; BF TOTAL CELLS COUNTED 100
== END ==
LOC: RAH 09:14
PROVIDERS: ATTEND Internal Medicine Gastroenterology
DX: K70.31 Alcoholic cirrhosis of liver with ascites (principal); I12.0 Hypertensive chronic kidney disease with stage 5 chronic kidney disease or end stage renal disease; E11.22 Type 2 diabetes mellitus with diabetic chronic kidney disease; N18.6 End stage renal disease; Z99.2 Dependence on renal dialysis; Z86.2 Personal history of diseases of the blood and blood-forming organs and certain disorders involving the immune mechanism; Z98.890 Other specified postprocedural states
CPT/HCPCS: 49083; 89051; P9046; C1729; 96365

== ENCOUNTER → 2025-02-26 | Outpatient (CLI) | payer OTHER ==
--- NOTE | 2025-02-26 11:37 | HMCIMG ---
US ABDOMINAL PARACENTESIS IR REASON: ASCITES This procedure was performed by Divya Lopez MD PGY2 with Dr. Burleson TECHNIQUE: Paracentesis was performed with ultrasound guidance. The puncture site was selected in the Left lower quadrant and overlying skin prepped and draped in a sterile fashion. 1% Xylocaine infiltration was performed. Catheter was placed in the fluid using trocar technique. 4.7L were removed. Fluid sample was submitted for laboratory evaluation. The patient showed no evidence of complication during the procedure. Albumin was given. Patient tolerated procedure well. IMPRESSION: 1. Ultrasound-guided paracentesis.
--- NOTE | 2025-02-26 11:40 | NUR ---
U/S GD PARACENTESIS PROCEDURE PERFORMED BY DR. SWETHA FONTAINE. PUNCTURE SITE LLQ AND PATIENT TOLERATED PROCEDURE WELL. TOTAL REMOVED 4.7 LITERS OF ASCITES FLUID. ALBUMIN 25% 50 GRAMS IV GIVEN DURING PROCEDURE. SPECIMEN SENT TO LAB. END OF PROCEDURE AT 1130. CATHETER REMOVED AND DRESSING APPLIED. NO BLEEDING NOTED. DISCHARGE INSTRUCTIONS GIVEN TO PATIENT AND VERBALIZED UNDERSTANDING. DISCHARGED VIA WHEELCHAIR. AAO X3 WITH NO C/O PAIN.
[2025-02-26 11:55] LABS: IMMATURE GRANULOCYTE ABSOLUTE 0.01 K/uL (0-1); NUCLEATED RED BLOOD CELLS 0.0 % (0.0-0.19); PLATELET COUNT (AUTO) 87 K/uL (130-400); RED BLOOD CELL COUNT(AUTO) 2.70 MIL/uL (4.50-6.20); RED CELL DISTRIBUTION WIDTH 14.0 % (11.0-15.5); WHITE BLOOD COUNT (AUTO) 3.6 K/uL (4.8-10.8)
[2025-02-26 12:15] LABS: ASPARTATE AMINOTRANSFERASE 23.0 U/L (10-37); CREATININE 4.9 mg/dL (0.5-1.3); GLOMERULAR FILTR. RATE CALC 15.0 mL/min (>90); GLUCOSE,RANDOM 85.0 mg/dL (70-105); SODIUM SERUM 136.0 mmol/L (136-145); TOTAL PROTEIN, SERUM 6.6 g/dL (6.0-8.3); UREA NITROGEN, BLOOD 18.0 mg/dL (7-18)
[2025-02-26 12:30] LABS: INR 1.05 (0.85-1.15)
[2025-02-26 15:15] LABS: BODY FLUID RBC 2074 /cu. mm.; BODY FLUID WBC 346 /cu. mm.
[2025-02-26 15:27] LABS: APPEARANCE BODY FLUID SLIGHTLY CLOUDY (CLEAR); COLOR,BODY FLUID YELLOW (LT YELLOW); SPECIMENTYPE,BODY FLUID ASCITES; TOTAL VOLUME,BODY FLUID 4700 mL
[2025-02-26] MEDS: ALBUMIN HUMAN 25% 200 ML IV ONE (15:43)
[2025-02-26 15:45] LABS: BF EOSINOPHIL 2 %; BF LYMPHOCYTE 13 %; BF MACROPHAGE 83; BF NEUTROPHIL 2.0 %; BF TOTAL CELLS COUNTED 100
== END ==
LOC: RAH 09:41
PROVIDERS: ATTEND Internal Medicine Gastroenterology
DX: K70.31 Alcoholic cirrhosis of liver with ascites (principal); I85.00 Esophageal varices without bleeding; I12.0 Hypertensive chronic kidney disease with stage 5 chronic kidney disease or end stage renal disease; E11.22 Type 2 diabetes mellitus with diabetic chronic kidney disease; N18.6 End stage renal disease; Z99.2 Dependence on renal dialysis; Z86.2 Personal history of diseases of the blood and blood-forming organs and certain disorders involving the immune mechanism; Z98.890 Other specified postprocedural states
CPT/HCPCS: 49083; 80053; 85025; 89051; 85610; 85730; 36415; P9046; C1729

== ENCOUNTER → 2025-03-03 | Outpatient (CLI) | payer OTHER ==
[~2025-03-03] MED LIST changes: +ALBUMIN HUMAN 25% 0 ML IV ONE
--- NOTE | 2025-03-03 11:15 | NUR ---
U/S GD PARACENTESIS PROCEDURE PERFORMED BY DR Shobha FONTAINE. PUNCTURE SITE LLQ AND PATIENT TOLERATED PROCEDURE WELL. TOTAL REMOVED 3.9 LITERS OF CLOUDY YELLOW FLUID. SPECIMEN SENT TO LAB. END OF PROCEDURE AT 1050. CATHETER REMOVED AND DRESSING APPLIED. NO BLEEDING NOTED. DISCHARGE INSTRUCTIONS GIVEN TO PATIENT AND VERBALIZED UNDERSTANDING. DISCHARGED VIA W/C AT 1115. AAO X3 WITH NO C/O PAIN.
--- NOTE | 2025-03-03 11:36 | HMCIMG ---
US ABDOMINAL PARACENTESIS IR Procedure was performed by Yulissa Penny M.D., PGY [address]leson REASON: ASCITES TECHNIQUE: Paracentesis was performed with ultrasound guidance. The puncture site was selected in the Right lower quadrant and overlying skin prepped and draped in a sterile fashion. 1% Xylocaine infiltration was performed. Catheter was placed in the fluid using trocar technique. 3.9 L were removed. Fluid sample was submitted for laboratory evaluation. The patient showed no evidence of complication during the procedure. No albumin was given. Procedure was well tolerated by patient IMPRESSION: 1. Ultrasound-guided paracentesis.
[2025-03-03 13:48] LABS: COLOR,BODY FLUID ORANGE (LT YELLOW); SPECIMENTYPE,BODY FLUID ASCITES; TOTAL VOLUME,BODY FLUID 3900 mL
[2025-03-03 13:49] LABS: APPEARANCE BODY FLUID SLIGHTLY CLOUDY (CLEAR)
[2025-03-03 13:52] LABS: BF LYMPHOCYTE 28 %; BF MACROPHAGE 31; BF MESOTHELIAL 37 %; BF MONOCYTE 4 %; BF TOTAL CELLS COUNTED 100
[2025-03-03 15:59] LABS: BODY FLUID WBC 200 /cu. mm.
[2025-03-03 16:00] LABS: BODY FLUID RBC 1675 /cu. mm.
== END ==
LOC: RAH 08:25
PROVIDERS: ATTEND Internal Medicine Gastroenterology
DX: K70.31 Alcoholic cirrhosis of liver with ascites (principal); I85.00 Esophageal varices without bleeding; I12.0 Hypertensive chronic kidney disease with stage 5 chronic kidney disease or end stage renal disease; E11.22 Type 2 diabetes mellitus with diabetic chronic kidney disease; N18.6 End stage renal disease; Z99.2 Dependence on renal dialysis; Z86.2 Personal history of diseases of the blood and blood-forming organs and certain disorders involving the immune mechanism; Z79.899 Other long term (current) drug therapy; Z98.890 Other specified postprocedural states
CPT/HCPCS: 49083; 89051; C1729; P9046

== ENCOUNTER → 2025-03-12 | Outpatient (CLI) | payer OTHER ==
[~2025-03-12] MED LIST changes: -ALBUMIN HUMAN 25% 0 ML IV ONE
--- NOTE | 2025-03-12 10:40 | NUR ---
U/S GD PARACENTESIS PROCEDURE PERFORMED BY DR FONTAINE. PUNCTURE SITE LLQ AND PATIENT TOLERATED PROCEDURE WELL. TOTAL REMOVED 3.8 LITERS OF YELLOW CLOUDY ASCITES FLUID. SPECIMEN SENT TO LAB. END OF PROCEDURE AT 1020. CATHETER REMOVED AND DRESSING APPLIED. NO BLEEDING NOTED. DISCHARGE INSTRUCTIONS GIVEN TO PATIENT AND VERBALIZED UNDERSTANDING. DISCHARGED VIA WHEELCHAIR. AAO X3 WITH NO C/O PAIN.
[2025-03-12 14:47] LABS: BODY FLUID RBC 3546 /cu. mm.; BODY FLUID WBC 379 /cu. mm.; SPECIMENTYPE,BODY FLUID ASCITES
[2025-03-12 14:48] LABS: APPEARANCE BODY FLUID CLOUDY (CLEAR); COLOR,BODY FLUID YELLOW (LT YELLOW); TOTAL VOLUME,BODY FLUID 3800 mL
[2025-03-12 15:28] LABS: BF LYMPHOCYTE 28 %; BF MACROPHAGE 66; BF MESOTHELIAL 1 %; BF NEUTROPHIL 4.0 %; BF OTHER CELLS 1; BF TOTAL CELLS COUNTED 100
--- NOTE | 2025-03-12 16:13 | HMCIMG ---
US ABDOMINAL PARACENTESIS IR REASON: ASCITES TECHNIQUE: Paracentesis was performed with ultrasound guidance. The puncture site was selected in the Right lower quadrant and overlying skin prepped and draped in a sterile fashion. 1% Xylocaine infiltration was performed. Catheter was placed in the fluid using trocar technique. 3.8 L were removed. Fluid sample was submitted for laboratory evaluation. The patient showed no evidence of complication during the procedure. Patient tolerated procedure well. IMPRESSION: 1. Ultrasound-guided paracentesis.
== END | disposition home or self-care (01) ==
LOC: RAH 09:14
PROVIDERS: ATTEND Internal Medicine Gastroenterology
DX: R18.8 Other ascites (principal)
CPT/HCPCS: 49083; 89051; C1729

== ENCOUNTER → 2025-03-18 | Outpatient (CLI) | payer OTHER ==
--- NOTE | 2025-03-18 12:00 | NUR ---
ULTRASOUND GUIDED PARACENTESIS PROCEDURE PERFORMED BY DR. SWETHA FONTAINE. PUNCTURE SITE LLQ AND PATIENT TOLERATED PROCEDURE WELL. TOTAL REMOVED 3.5 LITERS OF ASCITES FLUID. SPECIMEN SENT TO LAB. END OF PROCEDURE AT 1140. CATHETER REMOVED AND DRESSING APPLIED. NO BLEEDING NOTED. DISCHARGE INSTRUCTIONS GIVEN TO PATIENT AND VERBALIZED UNDERSTANDING. DISCHARGED VIA WHEELCHAIR ACCOMPANIED BY SISTER. AAO X3 WITH NO C/O PAIN.
--- NOTE | 2025-03-18 14:24 | HMCIMG ---
US ABDOMINAL PARACENTESIS IR REASON: ASCITES TECHNIQUE: Paracentesis was performed with ultrasound guidance. The puncture site was selected in the Right lower quadrant and overlying skin prepped and draped in a sterile fashion. 1% Xylocaine infiltration was performed. Catheter was placed in the fluid using trocar technique. 3.5 L were removed. Fluid sample was submitted for laboratory evaluation. The patient showed no evidence of complication during the procedure. She tolerated procedure well. IMPRESSION: 1. Ultrasound-guided paracentesis.
[2025-03-18 14:34] LABS: BODY FLUID RBC 2408 /cu. mm.; BODY FLUID WBC 297 /cu. mm.
[2025-03-18 14:59] LABS: APPEARANCE BODY FLUID SLIGHTLY CLOUDY (CLEAR); COLOR,BODY FLUID YELLOW (LT YELLOW); SPECIMENTYPE,BODY FLUID ASCITES; TOTAL VOLUME,BODY FLUID 3500 mL
[2025-03-18 17:05] LABS: BF LYMPHOCYTE 26 %; BF MACROPHAGE 64; BF MESOTHELIAL 1 %; BF NEUTROPHIL 3.0 %; BF OTHER CELLS 6; BF TOTAL CELLS COUNTED 100
== END ==
LOC: RAH 09:31
PROVIDERS: ATTEND Internal Medicine Gastroenterology
DX: K70.31 Alcoholic cirrhosis of liver with ascites (principal); I85.00 Esophageal varices without bleeding; I12.0 Hypertensive chronic kidney disease with stage 5 chronic kidney disease or end stage renal disease; E11.22 Type 2 diabetes mellitus with diabetic chronic kidney disease; N18.6 End stage renal disease; Z99.2 Dependence on renal dialysis; Z86.2 Personal history of diseases of the blood and blood-forming organs and certain disorders involving the immune mechanism; Z98.890 Other specified postprocedural states
CPT/HCPCS: 49083; 89051; 88108; 88305; C1729

== ENCOUNTER → 2025-03-24 | Outpatient (CLI) | payer OTHER ==
--- NOTE | 2025-03-24 12:00 | NUR ---
ULTRASOUND GUIDED PARACENTESIS PROCEDURE PERFORMED BY DR. SWETHA FONTAINE. PUNCTURE SITE LLQ AND PATIENT TOLERATED PROCEDURE WELL. TOTAL REMOVED 3.1 LITERS OF ASCITES FLUID. SPECIMEN SENT TO LAB. END OF PROCEDURE AT 1150. CATHETER REMOVED AND DRESSING APPLIED. NO BLEEDING NOTED. DISCHARGE INSTRUCTIONS GIVEN TO PATIENT AND VERBALIZED UNDERSTANDING. DISCHARGED VIA WHEELCHAIR ACCOMPANIED BY SISTER. AAO X3 WITH NO C/O PAIN.
--- NOTE | 2025-03-24 13:31 | HMCIMG ---
US ABDOMINAL PARACENTESIS IR REASON: ASCITES TECHNIQUE: Paracentesis was performed with ultrasound guidance. The puncture site was selected in the Right lower quadrant and overlying skin prepped and draped in a sterile fashion. 1% Xylocaine infiltration was performed. Catheter was placed in the fluid using trocar technique. 3.1 L were removed. Fluid sample was submitted for laboratory evaluation. The patient showed no evidence of complication during the procedure. Patient tolerated procedure well. IMPRESSION: 1. Ultrasound-guided paracentesis.
[2025-03-24 15:32] LABS: ALBUMIN,BODY FLUID 1.6 g/dL; TOTAL PROTEIN,BODY FLUID 3.3 g/dL
[2025-03-24 15:43] LABS: BODY FLUID RBC 2194 /cu. mm.; BODY FLUID WBC 478 /cu. mm.
[2025-03-24 16:33] LABS: SPECIMENTYPE,BODY FLUID ASCITES
[2025-03-24 16:34] LABS: APPEARANCE BODY FLUID SLIGHTLY CLOUDY (CLEAR); COLOR,BODY FLUID YELLOW (LT YELLOW); TOTAL VOLUME,BODY FLUID 1175 mL
[2025-03-24 16:36] LABS: BF LYMPHOCYTE 90 %; BF MESOTHELIAL 3 %; BF MONOCYTE 1 %; BF NEUTROPHIL 6.0 %; BF TOTAL CELLS COUNTED 100
== END ==
LOC: RAH 10:59
PROVIDERS: ATTEND Internal Medicine Gastroenterology
DX: K70.31 Alcoholic cirrhosis of liver with ascites (principal); I85.00 Esophageal varices without bleeding; I12.0 Hypertensive chronic kidney disease with stage 5 chronic kidney disease or end stage renal disease; E11.22 Type 2 diabetes mellitus with diabetic chronic kidney disease; N18.6 End stage renal disease; Z99.2 Dependence on renal dialysis; Z86.2 Personal history of diseases of the blood and blood-forming organs and certain disorders involving the immune mechanism; Z98.890 Other specified postprocedural states
CPT/HCPCS: 49083; 84157; 89051; 87071; 87076; 87205; 82042; 88108; 88305; C1729

== ENCOUNTER → 2025-04-07 | Outpatient (CLI) | payer OTHER ==
--- NOTE | 2025-04-07 11:15 | NUR ---
ULTRASOUND GUIDED PARACENTESIS PROCEDURE PERFORMED BY DR. SWETHA FONTAINE. PUNCTURE SITE LLQ AND PATIENT TOLERATED PROCEDURE WELL. TOTAL REMOVED 3.2 LITERS OF CLOUDY, LIZBET ASCITES FLUID. SPECIMEN SENT TO LAB. END OF PROCEDURE AT 1105. CATHETER REMOVED AND DRESSING APPLIED- NO BLEEDING NOTED. PATIENT ALERT AND ORIENTED AND DISCHARGED VIA WHEELCHAIR WITH NO C/O PAIN ACCOMPANIED BY FATHER.
[2025-04-07 11:21] LABS: IMMATURE GRANULOCYTE ABSOLUTE 0.03 K/uL (0-1); NUCLEATED RED BLOOD CELLS 0.0 % (0.0-0.19); PLATELET COUNT (AUTO) 125 K/uL (130-400); RED BLOOD CELL COUNT(AUTO) 3.73 MIL/uL (4.50-6.20); RED CELL DISTRIBUTION WIDTH 13.8 % (11.0-15.5); WHITE BLOOD COUNT (AUTO) 5.2 K/uL (4.8-10.8)
[2025-04-07 11:33] LABS: ASPARTATE AMINOTRANSFERASE 19.0 U/L (10-37); CREATININE 7.7 mg/dL (0.5-1.3); GLOMERULAR FILTR. RATE CALC 9.0 mL/min (>90); GLUCOSE,RANDOM 92.0 mg/dL (70-105); SODIUM SERUM 135.0 mmol/L (136-145); TOTAL PROTEIN, SERUM 6.6 g/dL (6.0-8.3); UREA NITROGEN, BLOOD 39.0 mg/dL (7-18)
[2025-04-07] MEDS: ALBUMIN HUMAN 25% 200 ML IV ONE (11:39)
[2025-04-07 11:44] LABS: INR 1.04 (0.85-1.15)
[2025-04-07 14:32] LABS: ALBUMIN,BODY FLUID 1.6 g/dL; TOTAL PROTEIN,BODY FLUID 3.3 g/dL
--- NOTE | 2025-04-07 14:34 | HMCIMG ---
US ABDOMINAL PARACENTESIS IR REASON: ASCITES TECHNIQUE: Paracentesis was performed with ultrasound guidance. The puncture site was selected in the Right lower quadrant and overlying skin prepped and draped in a sterile fashion. 1% Xylocaine infiltration was performed. Catheter was placed in the fluid using trocar technique. 3.69 L were removed. Fluid sample was submitted for laboratory evaluation. The patient showed no evidence of complication during the procedure. Patient tolerated procedure well. IMPRESSION: 1. Ultrasound-guided paracentesis.
[2025-04-07 14:51] LABS: BODY FLUID RBC 4341 /cu. mm.; BODY FLUID WBC 412 /cu. mm.
[2025-04-07 15:35] LABS: APPEARANCE BODY FLUID SLIGHTLY CLOUDY (CLEAR); COLOR,BODY FLUID YELLOW (LT YELLOW); SPECIMENTYPE,BODY FLUID ASCITES; TOTAL VOLUME,BODY FLUID 3200 mL
[2025-04-07 15:42] LABS: BF LYMPHOCYTE 33 %; BF MACROPHAGE 60; BF MESOTHELIAL 1 %; BF MONOCYTE 3 %; BF NEUTROPHIL 3.0 %; BF TOTAL CELLS COUNTED 100
== END ==
LOC: RAH 09:02
PROVIDERS: ATTEND Internal Medicine Gastroenterology
DX: K70.31 Alcoholic cirrhosis of liver with ascites (principal); I85.00 Esophageal varices without bleeding; I12.0 Hypertensive chronic kidney disease with stage 5 chronic kidney disease or end stage renal disease; E11.22 Type 2 diabetes mellitus with diabetic chronic kidney disease; N18.6 End stage renal disease; Z99.2 Dependence on renal dialysis; Z86.2 Personal history of diseases of the blood and blood-forming organs and certain disorders involving the immune mechanism; Z79.890 Hormone replacement therapy; Z79.899 Other long term (current) drug therapy; Z98.890 Other specified postprocedural states
CPT/HCPCS: 49083; 84157; 80053; 85025; 89051; 85610; 85730; 87071; 87205; 82042; 36415; 88108; 88305; P9046; C1729